=== PATIENT | female | born 1950 | race African-American/Black ===

== ENCOUNTER 2018-08-04 10:25 | Inpatient (IN) | payer BC, OTHER ==
[2018-08-04] MEDS ORDERED: SODIUM CHLORIDE 0.9% 1000 ML INFUS.BAG IV ONE (11:09)
[2018-08-04] MEDS ORDERED: FAMOTIDINE 20 MG/50 ML IVPB 20 MG/50 ML MG IVPB ONE ×2 (11:09→11:52)
[2018-08-04] MEDS ORDERED: ONDANSETRON 4 MG/2 ML VIAL IVPUSH ONE (11:09)
[2018-08-04] MEDS ORDERED: ONDANSETRON 4 MG/2 ML VIAL ONE (11:29)
[2018-08-04 11:55] LABS: BASO % 0.4 % (0-2.0); HEMATOCRIT 39.5 % (32.4-45.2); HEMOGLOBIN 12.9 GM/dL (10.7-15.3); LYMPH % 6.7 % (8-40); MCH 26.9 pg (25.7-33.7); MCHC 32.6 g/dl (32.0-36.0); MEAN CELL VOLUME 82.4 fl (80-96); MONO % 7.8 % (3.8-10.2); NEUT % 85.1 % (42.8-82.8); RBC 4.79 M/mm3 (3.60-5.2); RDW 14.2 % (11.6-15.6); WHITE BLOOD COUNT 9.7 K/mm3 (4.0-10.0)
--- NOTE | 2018-08-04 11:55 | PDOC ---
Documentation entered by Patricio Gomez SCRIBE, acting as scribe for Taty Uribe DO. Taty Uribe DO: This documentation has been prepared by the Patricia carlson Elijah, SCRIBE, under my direction and personally reviewed by me in its entirety. I confirm that the documentation accurately reflects all work, treatment, procedures, and medical decision making performed by me. History of Present Illness - General Chief Complaint: Diarrhea Stated Complaint: WEAK Time Seen by Provider: 08/04/18 10:48 History Source: Patient Exam Limitations: No Limitations - History of Present Illness Initial Comments: 08/04/18 11:32 The patient is a 68 year old female with no reported past medical history who presents to the ED with lightheadedness and diarrhea beginning two days prior. The patient reports eating a fruit cup that she reports was bitter. The patient then went to work and upon her return home, her symptoms began to onset. The patient reports that the diarrhea has come out in squirts and had 1 BM today and this morning. The patient described the lightheadedness as making her feel as if she was going to pass out but has since improved. The patient reported sleeping mostly over the last two days, that sips of gatorade has helped alleviate the pain and she tried to make herself vomit but nothing came out. Denies: Blood in Stool, Vomiting, Abdominal Pain, Dysuria, CP, SOB, Cough, Recent travel/ Antibiotic Use. Allergies: NKA Past History - Past Medical History Allergies/Adverse Reactions: Allergies Allergy/AdvReac Type Severity Reaction Status Date / Time No Known Allergies Allergy Verified 08/04/18 10:30 Asthma: Yes COPD: No - Suicide/Smoking/Psychosocial Hx Smoking History: Never smoked Review of Systems - Review of Systems Comments:: 08/04/18 11:32 GENERAL/CONSTITUTIONAL: +Lightheadedness No fever or chills. HEAD, EYES, EARS, NOSE AND THROAT: No change in vision. No ear pain or discharge. No sore throat. CARDIOVASCULAR: No chest pain or shortness of breath. RESPIRATORY: No cough, wheezing, or hemoptysis. GASTROINTESTINAL: +Diarrhea. No nausea, vomiting, or constipation. GENITOURINARY: No dysuria, frequency, or change in urination. MUSCULOSKELETAL: No joint or muscle swelling or pain. No neck or back pain. SKIN: No rash NEUROLOGIC: No headache, vertigo, loss of consciousness, or change in strength/ sensation. ENDOCRINE: No increased thirst. No abnormal weight change. HEMATOLOGIC/LYMPHATIC: No anemia, easy bleeding, or history of blood clots. ALLERGIC/IMMUNOLOGIC: No hives or skin allergy. *Physical Exam - Vital Signs Last Vital Signs Temp Pulse Resp BP Pulse Ox 98.7 F 95 H 18 116/75 99 08/04/18 10:28 08/04/18 10:08/04/18 10:08/04/18 10:08/04/18 10:28 - Physical Exam Comments: 08/04/18 11:33 GENERAL: Awake, alert, and fully oriented, in no acute distress HEAD: No signs of trauma EYES: PERRLA, EOMI, sclera anicteric, conjunctiva clear ENT: +Dry Mucosa. Auricles normal inspection, hearing grossly normal, nares patent, oropharynx clear without exudates. NECK: Normal ROM, supple, no lymphadenopathy, JVD, or masses LUNGS: Breath sounds equal, clear to auscultation bilaterally. No wheezes, and no crackles HEART: Regular rate and rhythm, normal S1 and S2, no murmurs, rubs or gallops ABDOMEN: Soft, nontender, normoactive bowel sounds. No guarding, no rebound. No masses EXTREMITIES: Normal range of motion, no edema. No clubbing or cyanosis. No cords, erythema, or tenderness NEUROLOGICAL: Cranial nerves II through XII grossly intact. Normal speech, normal gait SKIN: Warm, Dry, normal turgor, no rashes or lesions noted. Heart Score/ECG Review - ECG Intrepretation Comment:: 08/04/18 11:54 sinus at 87, nl axis, nl interval, no acute st/t wave findings, q waves septally which are age indeterminate 08/04/18 16:23 ED Treatment Course - LABORATORY CBC & Chemistry Diagram: 08/04/18 11:40 08/04/18 11:27 Medical Decision Making - Medical Decision Making 08/04/18 11:09 a/p: 68yo female with no pmhx with 2 days of diarrhea -felt lightheded on , started to have nonbloody diarrhea -felt nauseated -no vomiting -tolerated po yesterday -still with diarrhea this am- no blood in stool -no recent travel, abx, sick contacts -drank gatorade yesterday -will send labs, ekg, ivf hydration, zofran/pepcid -no abd ttp, states urinating freq, will send ua, but denies dysuria -will monitor and reassess -pt with dry mm, but nontoxic in appearance 08/04/18 13:01 mild trop spill will repeat at 3hr clover will give asa pt denies cp 08/04/18 13:28 pt denies needing any cp over the last week states feeling better now will continue to monitor and repeat trop 08/04/18 16:24 repeat trop still elevated pt again denies cp, but c/o nausea case discussed with Dr. Parham- accepts pt to service consult palced to dr. allen from cards *DC/Admit/Observation/Transfer Diagnosis at time of Disposition: Weak, Elevated troponin, UTI (urinary tract infection), Diarrhea - Discharge Dispostion Condition at time of disposition: Fair Decision to Admit order: Yes - Referrals - Patient Instructions - Post Discharge Activity - Attestations Physician Attestion: 08/04/18 16:27 I, Dr. Taty Uribe, DO, attest that this document has been prepared under my direction and personally reviewed by me in its entirety. I further attest, that it accurately reflects all work, treatment, procedures and medical decision -making performed by me.
[2018-08-04 12:04] LABS: PLATELET COUNT 148 K/MM3 (134-434)
[2018-08-04 12:23] LABS: ALBUMIN 3.2 g/dl (3.4-5.0); BILIRUBIN,TOTAL 0.6 mg/dL (0.2-1); BLOOD UREA NITROGEN 12.2 mg/dL (7-18); CALCIUM 8.9 mg/dL (8.5-10.1); CREATININE 1.1 mg/dL (0.55-1.3); MAGNESIUM 2.3 mg/dL (1.8-2.4); POTASSIUM 4.1 mmol/L (3.5-5.1); TOT PROT 6.8 g/dl (6.4-8.2)
[2018-08-04 12:36] LABS: EPI CELLS 1.4 /HPF (0-5/HPF); HYALINE CASTS 5 /lpf (0-8); URINE APPEARANCE CLOUDY; URINE BACTERIA 17.6 /hpf (NEGATIVE); URINE BILIRUBIN NEGATIVE (NEGATIVE); URINE COLOR YELLOW; URINE GLUCOSE (UA) NEGATIVE (NEGATIVE); URINE KETONE NEGATIVE (NEGATIVE); URINE LEUK ESTERASE 3+ (NEGATIVE); URINE NITRITE NEGATIVE (NEGATIVE); URINE PROTEIN 1+ (NEGATIVE); URINE RBC 18 /hpf (0-4); URINE WBC 376 /hpf (0-5)
[2018-08-04] MEDS ORDERED: CEFTRIAXONE 1 GM in DEXTROSE 5%-WATER - 100 ML IVPB ONE (12:58)
[2018-08-04] MEDS ORDERED: ASPIRIN 81 MG CHEWABLE TABLETS PO ONE (13:01)
[2018-08-04] MEDS ORDERED: ASPIRIN 81 MG CHEWABLE TABLETS ONE (14:19)
[2018-08-04] MEDS ORDERED: CEFTRIAXONE 1 GM/50 ML BAG ONE (14:19)
--- NOTE | 2018-08-04 16:36 | HP ---
CHIEF COMPLAINT: Diarrhea, Lethargy PCP: None HISTORY OF PRESENT ILLNESS: Pt is a 68 y/o F with no past medical history who presented to [facility] due to diarrhea and nausea. Pt endorses that this past , she began to feel rather weak and slept through most of the day. 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 Pt also states that she has had to urinate much more frequently during this time period. Diarrhea is described as coming out in " Squirts" and is non-bloody and not dark in color. Denies any inciting events. States she did consume a fruit cup before her symptoms began. Denies chest pain, shortness of breath, recent illness, or sick contacts. Denies ever experiencing these symptoms in the past. States she has not been followed by a primary care physician for years. PMH None Social Hx- Denies smoking or alcohol use. Denies illicit drug use. FH- MOM- DM, HTN. Father-Colon Cancer SurgHx- Dilation and Curettage ER course was notable for: (1) Troponin 0.09 (2) Leuk Est 3+ (3) Urine Blood- 3+ Allergies No Known Allergies Allergy (Verified 08/04/18 10:30) HOME MEDICATIONS: REVIEW OF SYSTEMS CONSTITUTIONAL: Absent: fever, chills, diaphoresis, generalized weakness, malaise, loss of appetite, weight change HEENT: Absent: rhinorrhea, nasal congestion, throat pain, throat swelling, difficulty swallowing, mouth swelling, ear pain, eye pain, visual changes CARDIOVASCULAR: Absent: chest pain, syncope, palpitations, irregular heart rate, lightheadedness , peripheral edema RESPIRATORY: Absent: cough, shortness of breath, dyspnea with exertion, orthopnea, wheezing, stridor, hemoptysis GASTROINTESTINAL: PRESENT nausea, diarrhea GENITOURINARY: Absent: dysuria, frequency, urgency, hesitancy, hematuria, flank pain, genital pain MUSCULOSKELETAL: Absent: myalgia, arthralgia, joint swelling, back pain, neck pain SKIN: Absent: rash, itching, pallor HEMATOLOGIC/IMMUNOLOGIC: Absent: easy bleeding, easy bruising, lymphadenopathy, frequent infections ENDOCRINE: Absent: unexplained weight gain, unexplained weight loss, heat intolerance, cold intolerance NEUROLOGIC: Absent: headache, focal weakness or paresthesias, dizziness, unsteady gait, seizure, mental status changes, bladder or bowel incontinence PSYCHIATRIC: Absent: anxiety, depression, suicidal or homicidal ideation, hallucinations. PHYSICAL EXAMINATION Vital Signs - 24 hr 08/04/18 08/04/18 08/04/18 10:28 12:03 14:48 Temperature 98.7 F Pulse Rate 95 H Pulse Rate [ 94 H Left Radial] Respiratory 18 18 Rate Blood Pressure 116/75 Blood Pressure 138/77 [Right Arm] O2 Sat by Pulse 99 99 98 Oximetry (%) GENERAL: NAD HEAD: Atraumatic/Normocephalic EYES: EOMI Sclera Clear EARS, NOSE, THROAT: MMM NECK: Normal range of motion, supple. LUNGS: CTAB HEART: RRR S1S2. ABDOMEN: Soft NDNT. No suprapubic tenderness MUSCULOSKELETAL: FROM throughout LOWER EXTREMITIES: No CCE NEUROLOGICAL: Cranial nerves II-XII intact. Normal speech. Normal gait. PSYCHIATRIC: Cooperative. Good eye contact. Appropriate mood and affect. SKIN: Warm, dry, normal turgor, no rashes or lesions noted, normal capillary refill. Laboratory Results - last 24 hr 08/04/18 08/04/18 08/04/18 11:27 11:40 11:50 WBC 9.7 RBC 4.79 Hgb 12.9 Hct 39.5 MCV 82.4 MCH 26.9 MCHC 32.6 RDW 14.2 Plt Count 148 MPV 9.0 Absolute Neuts (auto) 8.2 H Neutrophils % 85.1 H Lymphocytes % 6.7 L Monocytes % 7.8 Eosinophils % 0.0 Basophils % 0.4 Nucleated RBC % 0 Sodium 133 L Potassium 4.1 Chloride 97 L Carbon Dioxide 32 Anion Gap 4 L BUN 12.2 Creatinine 1.1 Est GFR (CKD-EPI)AfAm 58.91 Est GFR (CKD-EPI)NonAf 50.83 Random Glucose 155 H Calcium 8.9 Magnesium 2.3 Total Bilirubin 0.6 AST 53 H ALT 35 Alkaline Phosphatase 71 Creatine Kinase 341 H Creatine Kinase Index 0.4 CK-MB (CK-2) 1.7 Troponin I 0.09 H Total Protein 6.8 Albumin 3.2 L Lipase 209 Urine Color Yellow Urine Appearance Cloudy Urine pH 6.0 Ur Specific [place] 1.018 Urine Protein 1+ H Urine Glucose (UA) Negative Urine Ketones Negative Urine Blood 3+ H Urine Nitrite Negative Urine Bilirubin Negative Urine Urobilinogen 1.0 Ur Leukocyte Esterase 3+ H Urine WBC (Auto) 376 Urine RBC (Auto) 18 Urine Casts (Auto) 5 U Epithel Cells (Auto) 1.4 Urine Bacteria (Auto) 17.6 08/04/18 14:17 WBC RBC Hgb Hct MCV MCH MCHC RDW Plt Count MPV Absolute Neuts (auto) Neutrophils % Lymphocytes % Monocytes % Eosinophils % Basophils % Nucleated RBC % Sodium Potassium Chloride Carbon Dioxide Anion Gap BUN Creatinine Est GFR (CKD-EPI)AfAm Est GFR (CKD-EPI)NonAf Random Glucose Calcium Magnesium Total Bilirubin AST ALT Alkaline Phosphatase Creatine Kinase 344 H Creatine Kinase Index 0.5 CK-MB (CK-2) 1.8 Troponin I 0.09 H Total Protein Albumin Lipase Urine Color Urine Appearance Urine pH Ur Specific [place] Urine Protein Urine Glucose (UA) Urine Ketones Urine Blood Urine Nitrite Urine Bilirubin Urine Urobilinogen Ur Leukocyte Esterase Urine WBC (Auto) Urine RBC (Auto) Urine Casts (Auto) U Epithel Cells (Auto) Urine Bacteria (Auto) ASSESSMENT/PLAN: Pt is a 68 y/o F with no past medical history who presented to [facility] due to diarrhea and nausea. #R/O ACS -Trop 0.09. Repeat 0.09. 3rd trop pending -Echocardiogram -Tele -Cardiology Consult -EKG--> NSR, R Atrial Enlargement. No previous EKG to compare. QTc 416. #UTI -Leuk Est 3+. Urine WBCs 376. -Ceftriaxone 1 gm -Urine Culture pending #Hematuria -Urine Blood 3+ Microscopic. H/H WNL. -+ RBCs. Repeat U.A. If still + once UTI resolved, consider Urology evaluation outpatient. -Consider Renal Sono # Diarrhea -Stool O &P #FEN No Fluids --Monitor Electrolytes -Regular Diet #DVT ppx: -HEPSQTID #Dispo: Tele Visit type - Emergency Visit Emergency Visit: Yes ED Registration Date: 08/04/18 Care time: The patient presented to the Emergency Department on the above date and was hospitalized for further evaluation of their emergent condition. - New Patient This patient is new to me today: Yes Date on this admission: 08/04/18 - Critical Care Critical Care patient: No
--- NOTE | 2018-08-04 17:50 | PN ---
Teaching Attending Note Name of Resident: Julian Gonzalez ATTENDING PHYSICIAN STATEMENT I saw and evaluated the patient. I reviewed the resident's note and discussed the case with the resident. I agree with the resident's findings and plan as documented. SUBJECTIVE: This is a 68 year old woman with no significant medical history who comes to the ED complaining of weakness, fatigue, and lightheadedness x 2 days. She reports having diarrhea for several days. She denies having fever, chest pain, SOB. She has had chills. OBJECTIVE: Vital Signs Period Temp Pulse Resp BP Sys/Simon Pulse Ox Last 24 Hr 98.7 F 94-95 18-18 116-138/75-77 98-99 HEART: S1S2, RRR LUNGS: Clear ABDOMEN: Soft, non-tender, non-distended, normal BS EXTREMITIES: No edema Laboratory Tests 08/04/18 08/04/18 08/04/18 11:27 11:40 11:50 WBC 9.7 RBC 4.79 Hgb 12.9 Hct 39.5 MCV 82.4 MCH 26.9 MCHC 32.6 RDW 14.2 Plt Count 148 MPV 9.0 Absolute Neuts (auto) 8.2 H Neutrophils % 85.1 H Lymphocytes % 6.7 L Monocytes % 7.8 Eosinophils % 0.0 Basophils % 0.4 Nucleated RBC % 0 Sodium 133 L Potassium 4.1 Chloride 97 L Carbon Dioxide 32 Anion Gap 4 L BUN 12.2 Creatinine 1.1 Est GFR (CKD-EPI)AfAm 58.91 Est GFR (CKD-EPI)NonAf 50.83 Random Glucose 155 H Calcium 8.9 Magnesium 2.3 Total Bilirubin 0.6 AST 53 H ALT 35 Alkaline Phosphatase 71 Creatine Kinase 341 H Creatine Kinase Index 0.4 CK-MB (CK-2) 1.7 Troponin I 0.09 H Total Protein 6.8 Albumin 3.2 L Lipase 209 Urine Color Yellow Urine Appearance Cloudy Urine pH 6.0 Ur Specific [place] 1.018 Urine Protein 1+ H Urine Glucose (UA) Negative Urine Ketones Negative Urine Blood 3+ H Urine Nitrite Negative Urine Bilirubin Negative Urine Urobilinogen 1.0 Ur Leukocyte Esterase 3+ H Urine WBC (Auto) 376 Urine RBC (Auto) 18 Urine Casts (Auto) 5 U Epithel Cells (Auto) 1.4 Urine Bacteria (Auto) 17.6 08/04/18 14:17 WBC RBC Hgb Hct MCV MCH MCHC RDW Plt Count MPV Absolute Neuts (auto) Neutrophils % Lymphocytes % Monocytes % Eosinophils % Basophils % Nucleated RBC % Sodium Potassium Chloride Carbon Dioxide Anion Gap BUN Creatinine Est GFR (CKD-EPI)AfAm Est GFR (CKD-EPI)NonAf Random Glucose Calcium Magnesium Total Bilirubin AST ALT Alkaline Phosphatase Creatine Kinase 344 H Creatine Kinase Index 0.5 CK-MB (CK-2) 1.8 Troponin I 0.09 H Total Protein Albumin Lipase Urine Color Urine Appearance Urine pH Ur Specific [place] Urine Protein Urine Glucose (UA) Urine Ketones Urine Blood Urine Nitrite Urine Bilirubin Urine Urobilinogen Ur Leukocyte Esterase Urine WBC (Auto) Urine RBC (Auto) Urine Casts (Auto) U Epithel Cells (Auto) Urine Bacteria (Auto) ASSESSMENT AND PLAN: This is a 68 year old woman with no significant medical history who presented to the ED with weakness, fatigue, lightheadedness, and diarrhea. 1. Elevated CK, troponin - Patient denies chest pain - No ischemic EKG changes - Monitor on telemetry - Serial troponins - Echocardiogram 2. UTI - Ceftriaxone given in ED - will continue - Follow-up urine culture 3. Diarrhea - Check stool culture, O&P, WBC
[2018-08-04] MEDS: ACETAMINOPHEN 1000 MG/100 ML VIAL (NON FORMULARY) IVPB PRN (21:02)
[2018-08-04] MEDS: HEPARIN NA (PORCINE) 5,000 UNITS/ML 1ML VIAL SQ SCH (21:43)
[2018-08-05] MEDS: HEPARIN NA (PORCINE) 5,000 UNITS/ML 1ML VIAL SQ SCH ×3 (06:34→21:59)
[2018-08-05 06:43] LABS: BASO % 0.5 % (0-2.0); EOS % 0.1 % (0-4.5); HEMATOCRIT 36.8 % (32.4-45.2); HEMOGLOBIN 12.1 GM/dL (10.7-15.3); LYMPH % 9.9 % (8-40); MEAN CELL VOLUME 81.7 fl (80-96); MEAN PLT VOLUME 8.8 fl (7.5-11.1); MONO % 10.6 % (3.8-10.2); NEUT % 78.9 % (42.8-82.8); PLATELET COUNT 134 K/MM3 (134-434); WHITE BLOOD COUNT 6.5 K/mm3 (4.0-10.0)
[2018-08-05 07:02] LABS: PHOSPHOROUS 2.1 mg/dL (2.5-4.9)
[2018-08-05 07:12] LABS: INR 1.16 (0.83-1.09); PROTHROMBIN TIME (PATIENT) 13.7 SEC (9.7-13.0)
[2018-08-05 07:15] LABS: ACTIVATED PTT 35.8 SECONDS (25.2-36.5)
[2018-08-05] MEDS: ACETAMINOPHEN 1000 MG/100 ML VIAL (NON FORMULARY) IVPB PRN ×2 (10:36→21:59)
--- NOTE | 2018-08-05 10:37 | PN ---
Physical Exam: SUBJECTIVE: Patient seen and examined. She has no complaints. She has temp 103.2 this morning. OBJECTIVE: Vital Signs Period Temp Pulse Resp BP Sys/Simon Pulse Ox Last 24 Hr 98.0 F-103.2 F 75-94 16-18 126-147/67-79 96-99 GENERAL: The patient is awake, alert, and fully oriented, in no acute distress. LUNGS: Breath sounds equal, clear to auscultation bilaterally, no wheezes, no crackles, no accessory muscle use. HEART: Regular rate and rhythm, S1, S2, (+) 2/6 systolic murmur. ABDOMEN: Soft, nontender, nondistended, normoactive bowel sounds, no guarding, no rebound, no hepatosplenomegaly, no masses. EXTREMITIES: 2+ pulses, warm, well-perfused, no edema. Laboratory Results - last 24 hr 08/04/18 08/04/18 08/04/18 11:27 11:40 11:50 WBC 9.7 RBC 4.79 Hgb 12.9 Hct 39.5 MCV 82.4 MCH 26.9 MCHC 32.6 RDW 14.2 Plt Count 148 MPV 9.0 Absolute Neuts (auto) 8.2 H Neutrophils % 85.1 H Lymphocytes % 6.7 L Monocytes % 7.8 Eosinophils % 0.0 Basophils % 0.4 Nucleated RBC % 0 PT with INR INR PTT (Actin FS) Sodium 133 L Potassium 4.1 Chloride 97 L Carbon Dioxide 32 Anion Gap 4 L BUN 12.2 Creatinine 1.1 Est GFR (CKD-EPI)AfAm 58.91 Est GFR (CKD-EPI)NonAf 50.83 Random Glucose 155 H Lactic Acid Calcium 8.9 Phosphorus Magnesium 2.3 Total Bilirubin 0.6 AST 53 H ALT 35 Alkaline Phosphatase 71 Creatine Kinase 341 H Creatine Kinase Index 0.4 CK-MB (CK-2) 1.7 Troponin I 0.09 H Total Protein 6.8 Albumin 3.2 L Lipase 209 Urine Color Yellow Urine Appearance Cloudy Urine pH 6.0 Ur Specific [place] 1.018 Urine Protein 1+ H Urine Glucose (UA) Negative Urine Ketones Negative Urine Blood 3+ H Urine Nitrite Negative Urine Bilirubin Negative Urine Urobilinogen 1.0 Ur Leukocyte Esterase 3+ H Urine WBC (Auto) 376 Urine RBC (Auto) 18 Urine Casts (Auto) 5 U Epithel Cells (Auto) 1.4 Urine Bacteria (Auto) 17.6 08/04/18 08/04/18 08/05/18 14:17 19:43 06:11 WBC 6.5 RBC 4.50 Hgb 12.1 Hct 36.8 MCV 81.7 MCH 27.0 MCHC 33.0 RDW 14.0 Plt Count 134 MPV 8.8 Absolute Neuts (auto) 5.1 Neutrophils % 78.9 Lymphocytes % 9.9 D Monocytes % 10.6 H Eosinophils % 0.1 D Basophils % 0.5 Nucleated RBC % 0 PT with INR INR PTT (Actin FS) Sodium Potassium Chloride Carbon Dioxide Anion Gap BUN Creatinine Est GFR (CKD-EPI)AfAm Est GFR (CKD-EPI)NonAf Random Glucose Lactic Acid Calcium Phosphorus Magnesium Total Bilirubin AST ALT Alkaline Phosphatase Creatine Kinase 344 H Creatine Kinase Index 0.5 CK-MB (CK-2) 1.8 Troponin I 0.09 H 0.10 H Total Protein Albumin Lipase Urine Color Urine Appearance Urine pH Ur Specific [place] Urine Protein Urine Glucose (UA) Urine Ketones Urine Blood Urine Nitrite Urine Bilirubin Urine Urobilinogen Ur Leukocyte Esterase Urine WBC (Auto) Urine RBC (Auto) Urine Casts (Auto) U Epithel Cells (Auto) Urine Bacteria (Auto) 08/05/18 08/05/18 08/05/18 06:11 06:11 06:11 WBC RBC Hgb Hct MCV MCH MCHC RDW Plt Count MPV Absolute Neuts (auto) Neutrophils % Lymphocytes % Monocytes % Eosinophils % Basophils % Nucleated RBC % PT with INR 13.70 H INR 1.16 H PTT (Actin FS) 35.8 Sodium Potassium Chloride Carbon Dioxide Anion Gap BUN Creatinine Est GFR (CKD-EPI)AfAm Est GFR (CKD-EPI)NonAf Random Glucose Lactic Acid 0.8 Calcium Phosphorus 2.1 L Magnesium 2.0 Total Bilirubin AST ALT Alkaline Phosphatase Creatine Kinase Creatine Kinase Index CK-MB (CK-2) Troponin I 0.09 H Total Protein Albumin Lipase Urine Color Urine Appearance Urine pH Ur Specific [place] Urine Protein Urine Glucose (UA) Urine Ketones Urine Blood Urine Nitrite Urine Bilirubin Urine Urobilinogen Ur Leukocyte Esterase Urine WBC (Auto) Urine RBC (Auto) Urine Casts (Auto) U Epithel Cells (Auto) Urine Bacteria (Auto) Active Medications Generic Name Dose Route Start Last Admin Trade Name Freq PRN Reason Stop Dose Admin Acetaminophen 1,000 mg 08/04/18 20:41 08/05/18 10:36 Ofirmev Injection - IVPB 1,000 mg Q6H PRN Administration PAIN OR FEVER Heparin Sodium (Porcine) 5,000 unit 08/04/18 22:00 08/05/18 06:34 Heparin - SQ 5,000 unit TID ELIDA Administration Ceftriaxone Sodium 1 gm/ 50 mls @ 100 mls/hr 08/05/18 13:00 Dextrose IVPB DAILY@1300 [facility] Protocol ASSESSMENT/PLAN: This is a 68 year old woman with no significant medical history who presented to the ED with weakness, fatigue, lightheadedness, and diarrhea. 1. Elevated CK, troponin - Patient denies chest pain - No ischemic EKG changes - Monitor on telemetry - Troponins unchanged 0.09-0.10 - Echocardiogram ordered - Cardiology evaluation 2. UTI - Febrile today - Urine culture growing normal isaac - Continue ceftriaxone - If fever persists, will repeat CXR, blood/urine cultures 3. Diarrhea - Has not had diarrhea since admitted - Check stool culture, O&P, WBC 4. Hypophosphatemia - Start NeutraPhos Visit type - Emergency Visit Emergency Visit: Yes ED Registration Date: 08/04/18 Care time: The patient presented to the Emergency Department on the above date and was hospitalized for further evaluation of their emergent condition. - New Patient This patient is new to me today: No - Critical Care Critical Care patient: No - Discharge Referral Referred to [facility] No
[2018-08-05] MEDS ORDERED: cefTRIAXone SODIUM 1 GM VIAL ONE (13:12)
[2018-08-05] MEDS ORDERED: DEXTROSE 5%-WATER - 50 ML IVPB ONE (13:12)
[2018-08-05] MEDS: CEFTRIAXONE 1 GM in DEXTROSE 5%-WATER - 50 ML IVPB SCH (13:29)
[2018-08-05] MEDS: NAPH,MB-DB/K PH,MBDB POWDER PACKET PO SCH (21:59)
--- NOTE | 2018-08-06 00:26 | EKG ---
Test Reason : Blood Pressure : / mmHG Vent. Rate : 087 BPM Atrial Rate : 087 BPM P-R Int : 160 ms QRS Dur : 074 ms QT Int : 346 ms P-R-T Axes : 073 019 054 degrees QTc Int : 416 ms NORMAL SINUS RHYTHM RIGHT ATRIAL ENLARGEMENT SEPTAL INFARCT , AGE UNDETERMINED ABNORMAL ECG NO PREVIOUS ECGS AVAILABLE Confirmed by MD Panchal Edward ([id number]) on 08/06/2018 12:26:19 AM Referred By: Confirmed By:Bruno Panchal MD
[2018-08-06] MEDS: ACETAMINOPHEN 1000 MG/100 ML VIAL (NON FORMULARY) IVPB PRN (06:36)
[2018-08-06] MEDS: HEPARIN NA (PORCINE) 5,000 UNITS/ML 1ML VIAL SQ SCH ×3 (06:45→22:46)
[2018-08-06 08:02] LABS: BASO % 0.7 % (0-2.0); EOS % 0.2 % (0-4.5); HEMOGLOBIN 12.1 GM/dL (10.7-15.3); LYMPH % 14.6 % (8-40); MCHC 32.8 g/dl (32.0-36.0); MEAN CELL VOLUME 82.1 fl (80-96); MEAN PLT VOLUME 9.1 fl (7.5-11.1); MONO % 12.4 % (3.8-10.2); NEUT % 72.1 % (42.8-82.8); PLATELET COUNT 132 K/MM3 (134-434); RDW 13.8 % (11.6-15.6); WHITE BLOOD COUNT 5.4 K/mm3 (4.0-10.0)
[2018-08-06] MEDS ORDERED: ACETAMINOPHEN 1000 MG/100 ML VIAL (NON FORMULARY) IVPB ONE ×2 (08:15→17:26)
[2018-08-06 08:17] LABS: BLOOD UREA NITROGEN 8.2 mg/dL (7-18); CALCIUM 8.2 mg/dL (8.5-10.1); CREATININE 0.9 mg/dL (0.55-1.3); MAGNESIUM 2.2 mg/dL (1.8-2.4); PHOSPHOROUS 2.1 mg/dL (2.5-4.9); POTASSIUM 3.6 mmol/L (3.5-5.1)
[2018-08-06] MEDS: NAPH,MB-DB/K PH,MBDB POWDER PACKET PO SCH ×2 (10:03→22:46)
--- NOTE | 2018-08-06 12:14 | CON.CARD ---
Consult Consult Specialty:: Cardiology Referred by:: Hospitalist Medicine Reason for Consultation:: Demand ischemia - History of Present Illness Chief Complaint: Fever History of Present Illness: This is a 68 year old woman with no significant medical history who comes to the ED complaining of weakness, fatigue, nausea with dry heaves and lightheadedness x 2 days, diaphoresis, chills, subjective fevers up to 103.2. She reports having diarrhea and urinary frequency for several days. She denies having chest or abd pain, SOB, true syncope, palpitations, orthopnea, PND or LE edema. She has not been followed by a primary care physician for years. PMH None Social Hx- Denies smoking or alcohol use. Denies illicit drug use. FH- MOM- DM, HTN. Father-Colon Cancer SurgHx- Dilation and Curettage ER course was notable for: (1) Troponin 0.09 (2) Leuk Est 3+ (3) Urine Blood- 3+ - History Source History Provided By: Patient Limitations to Obtaining History: No Limitations - Smoking History Smoking history: Never smoked Home Medications - Allergies Allergies/Adverse Reactions: Allergies Allergy/AdvReac Type Severity Reaction Status Date / Time No Known Allergies Allergy Verified 08/04/18 10:30 Review of Systems - Review of Systems Constitutional: reports: Fever, Lethargy Gastrointestinal: reports: Diarrhea, Nausea Genitourinary: reports: Frequency Vital Signs: Vital Signs Temperature 101.3 F H 08/06/18 06:06 Pulse Rate 77 08/06/18 06:06 Respiratory Rate 20 08/06/18 06:06 Blood Pressure 138/58 L 08/06/18 06:06 O2 Sat by Pulse Oximetry (%) 96 08/06/18 06:00 Constitutional: Yes: No Distress, Calm Neck: Yes: Supple Respiratory: Yes: Regular, CTA Bilaterally Gastrointestinal: Yes: Normal Bowel Sounds, Soft Cardiovascular: Yes: Regular Rate and Rhythm JVD: No Carotid Bruit: No Heart Sounds: Yes: S1, S2 Edema: No - Other Data Labs, Other Data: CBC, BMP 08/06/18 06:36 08/06/18 06:36 INR, PTT INR 1.16 (0.83-1.09) H 08/05/18 06:11 NSR @ 87 Imaging - Results Chest X-ray: Report Reviewed (NAD) Problem List - Problems (1) Demand ischemia Code(s): I24.8 - OTHER FORMS OF ACUTE ISCHEMIC HEART DISEASE (2) Diarrhea Code(s): R19.7 - DIARRHEA, UNSPECIFIED Qualifiers: Diarrhea type: unspecified type Qualified Code(s): R19.7 - Diarrhea, unspecified (3) Elevated troponin Code(s): R74.8 - ABNORMAL LEVELS OF OTHER SERUM ENZYMES (4) UTI (urinary tract infection) Code(s): N39.0 - URINARY TRACT INFECTION, SITE NOT SPECIFIED Qualifiers: Urinary tract infection type: site unspecified Hematuria presence: without hematuria Qualified Code(s): N39.0 - Urinary tract infection, site not specified (5) Weak Code(s): R53.1 - WEAKNESS (6) Hyponatremia Code(s): E87.1 - HYPO-OSMOLALITY AND HYPONATREMIA Assessment/Plan 1. CAD, demand ischemia in context of 2. UTI, sepsis source 3. Diarrhea 4. Hyponatremia P:1. Trops plateaued, check echo to assess ventricular and valve fxn, start ASA 81 qd and Toprol XL 25 qd as hemodynamics tolerate 2. Empiric abx course per C&S, f/u stool studies, chest and abd/pelvic CT results, free H20 restrict, DVT prophylaxis 3. Thank you for consultative opportunity
[2018-08-06] MEDS ORDERED: DEXTROSE 5%-WATER - 50 ML IVPB ONE (12:45)
[2018-08-06] MEDS ORDERED: cefTRIAXone SODIUM 1 GM VIAL ONE (12:45)
[2018-08-06] MEDS: CEFTRIAXONE 1 GM in DEXTROSE 5%-WATER - 50 ML IVPB SCH (12:46)
[2018-08-06] MEDS: ASPIRIN 81 MG CHEWABLE TABLETS PO SCH (12:46)
[2018-08-06] MEDS: metoPROLOL SUCCINATE 25 MG TAB.SR.24H (FP) PO SCH (12:46)
--- NOTE | 2018-08-06 15:11 | ECHO ---
Name: SANTIAGO PINTO Exam:Adult Echocardiogram Study Date: 08/06/2018 08:20 AM Age: 68 yrs Reason For Study: troponin Height: 67 in Weight: 157 lb BSA: 1.8 m2 MMode/2D Measurements & Calculations IVSd: 1.0 cm ACS: 1.8 cm LVIDd: 5.1 cm LVIDs: 2.8 cm LVPWd: 0.73 cm IVSs: 1.7 cm LVPWs: 1.3 cm EDV(Teich): 124.5 ml ESV(Teich): 28.6 ml Doppler Measurements & Calculations MV E max jaleel: 68.1 cm/sec Ao V2 max: 161.6 cm/sec MV A max jaleel: 73.8 cm/sec Ao max P.4 mmHg MV E/A: 0.92 Ao V2 mean: 108.9 cm/sec Ao mean P.4 mmHg Ao V2 VTI: 29.9 cm TR max jaleel: 219.0 cm/sec PI end-d jaleel: 61.1 cm/sec TR max P.3 mmHg Med Peak E' Jaleel: 6.3 cm/sec Med E/e': 10.9 Lat Peak E' Jaleel: 8.8 cm/sec Lat E/e': 7.8 Procedure A complete two-dimensional transthoracic echocardiogram was performed (2D, M-mode, Doppler and color flow Doppler). Left Ventricle The left ventricle is normal in size. Left ventricular systolic function is normal. Ejection Fraction = 65- 70%. Grade I diastolic dysfunction, (abnormal relaxation pattern). Ratio E/E'= 9. No regional wall mo tion abnormalities noted. Right Ventricle The right ventricle is normal size. The right ventricular systolic function is normal. Atria The left atrial size is normal. Right atrial size is normal. Mitral Valve There is mild mitral annular calcification. There is mild mitral valve thickening. There is mild mitr al regurgitation. Tricuspid Valve The tricuspid valve is normal in structure and function. There is moderate tricuspid regurgitation. P ulmonary artery systolic pressure is at least 26 mmHg if RA pressure is assumed 3 mmHg. Aortic Valve There is mild aortic sclerosis.;. No aortic regurgitation is present. Pulmonic Valve The pulmonic valve is not well visualized. Mild pulmonic valvular regurgitation. Great Vessels The aortic root is normal size. Pericardium/Pleura There is no pericardial effusion. Interpretation Summary The left ventricle is normal in size. Left ventricular systolic function is normal. No regional wall motion abnormalities noted. Ejection Fraction = 65-70%. Grade I diastolic dysfunction, (abnormal relaxation pattern). Ratio E/E'= 9 The right ventricular systolic function is normal. The left atrial size is normal. Right atrial size is normal. There is mild mitral annular calcification. There is mild mitral valve thickening. There is mild mitral regurgitation. There is moderate tricuspid regurgitation. Pulmonary artery systolic pressure is at least 26 mmHg if RA pressure is assumed 3 mmHg There is mild aortic sclerosis. Mild pulmonic valvular regurgitation. There is no pericardial effusion. Previous study is not available for comparison Liam Blackmon MD 08/06/2018 03:10 PM
--- NOTE | 2018-08-06 16:54 | PN ---
Teaching Attending Note Name of Resident: Amanda Gilbert ATTENDING PHYSICIAN STATEMENT I saw and evaluated the patient. I reviewed the resident's note and discussed the case with the resident. I agree with the resident's findings and plan as documented. SUBJECTIVE: cont to have fever . No VILLALOBOS , no SOB, abd pain. no diarrhea OBJECTIVE: NAD CV: RRR, no MRG Lungs : CTAB Abd: soft, NT, ND , NL BS Ext : no edema or erythema ASSESSMENT AND PLAN: 68 y/o lady with no sig PMH who presented with fever and diarrhea 1- Fever: unclear source. U cx negative , but has significant pyuria. cxray with questinablel findings. had diarrhea - check CT of abd/p and chest - follow blood cx - cont empiric ctx - check legionella AG - no vegetations on Echo - will decide on next step after CT scan results - if no source is found, will consult ID 2- demand ischemia /elevated trop : - echo reviewed. - appreciate card input : ASa and BB 3- hypophosphatemia: replete 5- DVT PX : heparin sq
--- NOTE | 2018-08-06 18:45 | PN ---
Physical Exam: The patient is a 68 YO female, presented to the ER with c/o diarrhea and nausea. PMH is not significant. She was admitted for UTI and elevated Troponin levels. SUBJECTIVE: Patient seen and examined at bedside. She was seated in bed, was alert, and appeared to be well oriented in time and place. No acute complaints. Last bowel movement 2 days ago. OBJECTIVE: Vital Signs Period Temp Pulse Resp BP Sys/Simon Pulse Ox Last 24 Hr 98.0 F-103.2 F 73-85 20-20 110-146/52-91 96-97 GENERAL: The patient is awake, alert, and fully oriented, in no acute distress. HEAD: Normal with no signs of trauma. EYES: No ptosis. ABDOMEN: Soft, nontender, nondistended, no guarding, no rebound, no hepatosplenomegaly, no masses. EXTREMITIES: 2+ pulses, warm, well-perfused, no edema. PSYCH: Coooperative, maintained eye contact, normal mood, normal affect. SKIN: Warm, dry CBC, BMP 08/06/18 06:36 08/06/18 06:36 Laboratory Results - last 24 hr 08/06/18 08/06/18 06:36 06:36 WBC 5.4 RBC 4.50 Hgb 12.1 Hct 37.0 MCV 82.1 MCH 27.0 MCHC 32.8 RDW 13.8 Plt Count 132 L MPV 9.1 Absolute Neuts (auto) 3.9 Neutrophils % 72.1 Lymphocytes % 14.6 D Monocytes % 12.4 H Eosinophils % 0.2 D Basophils % 0.7 Nucleated RBC % 0 Sodium 133 L Potassium 3.6 Chloride 96 L Carbon Dioxide 31 Anion Gap 6 L BUN 8.2 Creatinine 0.9 Est GFR (CKD-EPI)AfAm 75.08 Est GFR (CKD-EPI)NonAf 64.78 Random Glucose 150 H Calcium 8.2 L Phosphorus 2.1 L Magnesium 2.2 Creatine Kinase 336 H Creatine Kinase Index 0.3 CK-MB (CK-2) 1.3 Active Medications Generic Name Dose Route Start Last Admin Trade Name Freq PRN Reason Stop Dose Admin Aspirin 81 mg 08/06/18 12:30 08/06/18 12:46 Asa - PO 81 mg DAILY ELIDA Administration Heparin Sodium (Porcine) 5,000 unit 08/04/18 22:00 08/06/18 14:44 Heparin - SQ 5,000 unit TID ELIDA Administration Ceftriaxone Sodium 1 gm/ 50 mls @ 100 mls/hr 08/05/18 13:00 08/06/18 12:46 Dextrose IVPB 100 mls/hr DAILY@1300 ELIDA Administration Protocol Metoprolol Succinate 25 mg 08/06/18 12:30 08/06/18 12:46 Toprol Xl - PO 25 mg DAILY ELIDA Administration Potassium Phos/Sodium Phos 1 packet 08/05/18 22:00 08/06/18 10:03 Phos-Nak Packet - PO 1 packet BID ELIDA Administration ASSESSMENT/PLAN: #ACS Troponin: 0.09. repeat 0.09, repeat 0.01 EKG: Noral Sinus Rhythm, R Atrial Enlargement. No previous EKGs available for comparison. Echo: showed E 65-70%, LVSF Normal, Grade 1 Diastolic Dysfunction Continue ASA and Metoprolol #Sepsis secondary to UTI Ceftriaxone course D/C after completion (3 days) Urine CX normal (08/04), repeat pending CT Chest & Abdomen/Pelvis w contrast pending 101.3F fever this morning, was administered 1g Tylenol IV 0636, repeat at 1750 #Diarrhea Resolved Stool culture pending #FEN No Fluids Monitor Electrolytes, Regular Diet #DVT Prophylaxis HEPSQTID #Disposition Tele Visit type - Emergency Visit Emergency Visit: Yes ED Registration Date: 08/04/18 Care time: The patient presented to the Emergency Department on the above date and was hospitalized for further evaluation of their emergent condition. - New Patient This patient is new to me today: Yes Date on this admission: 08/06/18 - Critical Care Critical Care patient: No - Discharge Referral Referred to [facility] Med P.C.: No
[2018-08-07] MEDS: HEPARIN NA (PORCINE) 5,000 UNITS/ML 1ML VIAL SQ SCH ×3 (06:41→22:04)
[2018-08-07] MEDS ORDERED: ACETAMINOPHEN 1000 MG/100 ML VIAL (NON FORMULARY) IVPB ONE (07:26)
[2018-08-07 08:22] LABS: HEMATOCRIT 38.4 % (32.4-45.2); HEMOGLOBIN 12.5 GM/dL (10.7-15.3); MCH 26.8 pg (25.7-33.7); MCHC 32.5 g/dl (32.0-36.0); MEAN CELL VOLUME 82.5 fl (80-96); MEAN PLT VOLUME 9.8 fl (7.5-11.1); PLATELET COUNT 142 K/MM3 (134-434); RBC 4.66 M/mm3 (3.60-5.2); RDW 13.9 % (11.6-15.6); WHITE BLOOD COUNT 6.8 K/mm3 (4.0-10.0)
[2018-08-07 08:49] LABS: ALBUMIN 2.8 g/dl (3.4-5.0); BILIRUBIN,TOTAL 0.4 mg/dL (0.2-1); BLOOD UREA NITROGEN 6.9 mg/dL (7-18); CALCIUM 8.4 mg/dL (8.5-10.1); POTASSIUM 3.8 mmol/L (3.5-5.1); TOT PROT 6.3 g/dl (6.4-8.2)
[2018-08-07] MEDS: ASPIRIN 81 MG CHEWABLE TABLETS PO SCH (09:38)
[2018-08-07] MEDS: NAPH,MB-DB/K PH,MBDB POWDER PACKET PO SCH ×2 (09:38→22:04)
[2018-08-07] MEDS: metoPROLOL SUCCINATE 25 MG TAB.SR.24H (FP) PO SCH (09:38)
--- NOTE | 2018-08-07 10:01 | PN ---
Progress Note, Physician Chief Complaint: Events noted Not in distress History of Present Illness: Patient was seen and examined. Awake and alert. Chart was reviewed. Denies chest pain, SOB or palpitations - Current Medication List Current Medications: Active Medications Aspirin (Asa -) 81 mg PO DAILY [facility] Last Admin: 08/07/18 09:38 Dose: 81 mg Heparin Sodium (Porcine) (Heparin -) 5,000 unit SQ TID [facility] Last Admin: 08/07/18 06:41 Dose: 5,000 unit Ceftriaxone Sodium 1 gm/ (Dextrose) 50 mls @ 100 mls/hr IVPB DAILY@1300 ELIDA; Protocol Last Admin: 08/06/18 12:46 Dose: 100 mls/hr Metoprolol Succinate (Toprol Xl -) 25 mg PO DAILY [facility] Last Admin: 08/07/18 09:38 Dose: 25 mg Potassium Phos/Sodium Phos (Phos-Nak Packet -) 1 packet PO BID [facility] Last Admin: 08/07/18 09:38 Dose: 1 packet - Objective Vital Signs: Vital Signs Temperature 102.4 F H 08/07/18 06:39 Pulse Rate 83 08/07/18 06:39 Respiratory Rate 20 08/07/18 06:39 Blood Pressure 132/64 08/07/18 06:39 O2 Sat by Pulse Oximetry (%) 96 08/06/18 21:00 Eyes: Yes: PERRL HENT: Yes: Atraumatic Neck: Yes: Supple Cardiovascular: Yes: Regular Rate and Rhythm Respiratory: Yes: CTA Bilaterally Gastrointestinal: Yes: Normal Bowel Sounds, Soft. No: Tenderness Edema: No Additional Findings/Remarks: - Review of Systems Constitutional: denies: Chills, Fever Cardiovascular: denies: Chest Pain, Palpitations, Shortness of Breath Respiratory: denies: Cough, Hemoptysis, Orthopnea, PND, SOB, SOB on Exertion Gastrointestinal: denies: Abdominal Pain, Constipation, Diarrhea, Melena, Nausea , Rectal Bleeding, Vomiting Musculoskeletal: denies: Back Pain, Joint Pain Neurological: denies Dizziness, Syncope. denies: Headache, Seizure Labs: CBC, BMP 08/07/18 07:36 08/07/18 07:36 Problem List - Problems (1) Demand ischemia Code(s): I24.8 - OTHER FORMS OF ACUTE ISCHEMIC HEART DISEASE (2) Elevated troponin Code(s): R74.8 - ABNORMAL LEVELS OF OTHER SERUM ENZYMES (3) Hyponatremia Code(s): E87.1 - HYPO-OSMOLALITY AND HYPONATREMIA (4) UTI (urinary tract infection) Code(s): N39.0 - URINARY TRACT INFECTION, SITE NOT SPECIFIED Qualifiers: Urinary tract infection type: site unspecified Hematuria presence: without hematuria Qualified Code(s): N39.0 - Urinary tract infection, site not specified Assessment/Plan 1. CAD, demand ischemia 2. UTI, sepsis source 3. Hyponatremia PLAN: 1. Trend troponin. Currently coming down 2. Continue ASA 81 mg QD and Toprol XL 25 mg QD as hemodynamics tolerate 3. Echocardiography was reviewed 4. Empiric antibiotic coverage 5. DVT prophylaxis Liam Blackmon MD
[2018-08-07 12:07] VITALS: BMI 25.3
[2018-08-07] MEDS ORDERED: cefTRIAXone SODIUM 1 GM VIAL ONE (14:02)
[2018-08-07] MEDS ORDERED: DEXTROSE 5%-WATER - 50 ML IVPB ONE ×2 (14:02→18:42)
[2018-08-07] MEDS: CEFTRIAXONE 1 GM in DEXTROSE 5%-WATER - 50 ML IVPB SCH (14:09)
[2018-08-07] MEDS ORDERED: AZITHROMYCIN IVPB 500 MG/250 ML BAG IVPB SCH (17:00)
--- NOTE | 2018-08-07 17:57 | PN ---
Teaching Attending Note Name of Resident: Amanda Gilbert ATTENDING PHYSICIAN STATEMENT I saw and evaluated the patient. I reviewed the resident's note and discussed the case with the resident. I agree with the resident's findings and plan as documented. SUBJECTIVE: cont to have fever . No VILLALOBOS . refused CT last night . had a formed BM OBJECTIVE: NAD CV: RRR, no MRG Lungs: CTAB Abd: soft, NT, ND, NL BS Ext : no edema or erythema ASSESSMENT AND PLAN: 68 y/o lady with no sig PMH who presented with fever and diarrhea 1- Fever: unclear source. U cx negative , but has significant pyuria. cxray with questionable findings. had diarrhea prior to admission - Unfortunately, she refused CT scan last night . will try today - in man time will add azithro and check legionella Ag given possible infiltrate - cont empiric ctx - no vegetations on Echo. blood cx neg to date - will consult ID. 2- Demand ischemia/elevated trop: - cont ASa and BB 3- hypophosphatemia: repeat tomorrow 5- DVT PX : heparin sq
[2018-08-07] MEDS ORDERED: PIPERACILLIN/TAZOB 3.375 GM 3.375 GM in DEXTROSE 5%-WATER - 50 ML IVPB SCH (18:15)
[2018-08-07] MEDS ORDERED: PIPERACILLIN/TAZOBACTAM 3.375 GM VIAL IVPB ONE (18:41)
[2018-08-07] MEDS: PIPERACILLIN/TAZOB 3.375 GM 3.375 GM in DEXTROSE 5%-WATER - 50 ML IVPB SCH (18:44)
--- NOTE | 2018-08-07 19:11 | PN ---
Physical Exam: Patient is a 68 yo Female with no significant PMH, presented to ED with diarrhea and nausea, admitted due to UTI and elevated Troponin levels. SUBJECTIVE: Patient seen and examined by the bedside. She was alert, well oriented in time and place, and cooperative. OBJECTIVE: Vital Signs Period Temp Pulse Resp BP Sys/Simon Pulse Ox Last 24 Hr 98.1 F-102.4 F 71-83 16-20 112-132/58-71 96-96 GENERAL: The patient is awake, alert, and fully oriented, in no acute distress. HEAD: Normal with no signs of trauma. EYES: No ptosis. NECK: Trachea midline, full range of motion, supple. LUNGS: Breath sounds equal, clear to auscultation bilaterally, no wheezes, no crackles, no accessory muscle use. HEART: Regular rate and rhythm, S1, S2 without murmur, rub or gallop. ABDOMEN: Soft, nontender, nondistended, normoactive bowel sounds, no guarding, no rebound, no hepatosplenomegaly. Potential hematoma detected in RLQ NEUROLOGICAL:Normal speech, gait not observed. PSYCH: Normal mood, normal affect. Laboratory Results - last 24 hr 08/07/18 08/07/18 07:36 07:36 WBC 6.8 RBC 4.66 Hgb 12.5 Hct 38.4 MCV 82.5 MCH 26.8 MCHC 32.5 RDW 13.9 Plt Count 142 MPV 9.8 Sodium 132 L Potassium 3.8 Chloride 95 L Carbon Dioxide 31 Anion Gap 6 L BUN 6.9 L Creatinine 1.0 Est GFR (CKD-EPI)AfAm 66.10 Est GFR (CKD-EPI)NonAf 57.03 Random Glucose 126 H Calcium 8.4 L Total Bilirubin 0.4 AST 74 H ALT 52 Alkaline Phosphatase 90 Total Protein 6.3 L Albumin 2.8 L Active Medications Generic Name Dose Route Start Last Admin Trade Name Freq PRN Reason Stop Dose Admin Acetaminophen 650 mg 08/07/18 16:51 Tylenol - PO Q6H PRN FEVER Aspirin 81 mg 08/06/18 12:30 08/07/18 09:38 Asa - PO 81 mg DAILY ELIDA Administration Heparin Sodium (Porcine) 5,000 unit 08/04/18 22:00 08/07/18 14:26 Heparin - SQ 5,000 unit TID ELIDA Administration Azithromycin 500 mg in 250 mls @ 250 mls/hr 08/07/18 17:00 08/07/18 18:45 Zithromax 500mg Ivpb (Pre-Docked) IVPB 250 mls/hr Q24H ELIDA Administration Piperacillin Sod/Tazobactam 50 mls @ 100 mls/hr 08/07/18 18:15 Sod 3.375 gm/ Dextrose IVPB Q8H-IV ELIDA Protocol Piperacillin Sod/Tazobactam 50 mls @ 100 mls/hr 08/07/18 18:30 08/07/18 18:44 Sod 3.375 gm/ Dextrose IVPB 08/08/18 10:29 100 mls/hr Q8H-IV ELIDA Administration Protocol Metoprolol Succinate 25 mg 08/06/18 12:30 08/07/18 09:38 Toprol Xl - PO 25 mg DAILY ELIDA Administration Potassium Phos/Sodium Phos 1 packet 08/05/18 22:00 08/07/18 09:38 Phos-Nak Packet - PO 1 packet BID ELIDA Administration CBC, BMP 08/07/18 07:36 08/07/18 07:36 ASSESSMENT/PLAN: #Fever -Fever spiked at 102.4 at 10AM and 101.6 at 3:41PM -Added Azythromycin 500mg Q24, Administered Tylenol IV, started on Tylenol PO PRN -Potential ID consult tomorrow pending CT result -CT scan refused by patient last night, due to go in today at 5PM -Reported one bowel movement at 7AM, brown and semi firm (like putty). #ACS: -Resolved, Troponin 0.01 -Continue Aspirin and BB #Hypophosphetemia: -Follow K #DVT -Heparin prophylaxis Visit type - Emergency Visit Emergency Visit: Yes ED Registration Date: 08/04/18 Care time: The patient presented to the Emergency Department on the above date and was hospitalized for further evaluation of their emergent condition. - New Patient This patient is new to me today: No - Critical Care Critical Care patient: No - Discharge Referral Referred to [facility] Med P.C.: No
[2018-08-07] MEDS: ACETAMINOPHEN 325 MG TABLET (FP) PO PRN (20:15)
[2018-08-08] MEDS ORDERED: ACETAMINOPHEN 1000 MG/100 ML VIAL (NON FORMULARY) IVPB PRN (02:05)
[2018-08-08] MEDS ORDERED: SODIUM CHLORIDE 500 ML IV STA (02:21)
[2018-08-08] MEDS: PIPERACILLIN/TAZOB 3.375 GM 3.375 GM in DEXTROSE 5%-WATER - 50 ML IVPB SCH ×4 (03:30→17:33)
[2018-08-08] MEDS ORDERED: DEXTROSE 5%-WATER - 50 ML IVPB ONE ×3 (03:48→16:31)
[2018-08-08] MEDS ORDERED: PIPERACILLIN/TAZOBACTAM 3.375 GM VIAL IVPB ONE ×3 (03:48→16:31)
[2018-08-08] MEDS: HEPARIN NA (PORCINE) 5,000 UNITS/ML 1ML VIAL SQ SCH ×3 (06:26→22:19)
[2018-08-08 07:57] LABS: BASO % 0.5 % (0-2.0); EOS % 0.2 % (0-4.5); HEMOGLOBIN 11.4 GM/dL (10.7-15.3); LYMPH % 17.6 % (8-40); MCH 26.7 pg (25.7-33.7); MCHC 32.7 g/dl (32.0-36.0); MEAN CELL VOLUME 81.6 fl (80-96); MEAN PLT VOLUME 9.3 fl (7.5-11.1); NEUT % 70.7 % (42.8-82.8); PLATELET COUNT 137 K/MM3 (134-434); RBC 4.29 M/mm3 (3.60-5.2); WHITE BLOOD COUNT 6.7 K/mm3 (4.0-10.0)
--- NOTE | 2018-08-08 08:08 | PN ---
Progress Note, Physician - Current Medication List Current Medications: Active Medications Acetaminophen (Tylenol -) 650 mg PO Q6H PRN PRN Reason: FEVER Last Admin: 08/07/18 20:15 Dose: 650 mg Acetaminophen (Ofirmev Injection -) 1,000 mg IVPB Q6H PRN PRN Reason: FEVER Aspirin (Asa -) 81 mg PO DAILY [facility] Last Admin: 08/07/18 09:38 Dose: 81 mg Heparin Sodium (Porcine) (Heparin -) 5,000 unit SQ TID [facility] Last Admin: 08/08/18 06:26 Dose: 5,000 unit Azithromycin (Zithromax 500mg Ivpb (Pre-Docked)) 500 mg in 250 mls @ 250 mls/ hr IVPB Q24H ON LICENSE OF [facility] Last Admin: 08/07/18 18:45 Dose: 250 mls/hr Piperacillin Sod/Tazobactam (Sod 3.375 gm/ Dextrose) 50 mls @ 100 mls/hr IVPB Q8H-IV ELIDA; Protocol Piperacillin Sod/Tazobactam (Sod 3.375 gm/ Dextrose) 50 mls @ 100 mls/hr IVPB Q8H-IV ELIDA; Protocol Stop: 08/08/18 10:29 Last Admin: 08/08/18 03:30 Dose: 100 mls/hr Metoprolol Succinate (Toprol Xl -) 25 mg PO DAILY [facility] Last Admin: 08/07/18 09:38 Dose: 25 mg Potassium Phos/Sodium Phos (Phos-Nak Packet -) 1 packet PO BID [facility] Last Admin: 08/07/18 22:04 Dose: 1 packet - Objective Vital Signs: Vital Signs Temperature 99.2 F 08/08/18 07:03 Pulse Rate 65 08/08/18 07:03 Respiratory Rate 20 08/08/18 07:03 Blood Pressure 106/51 L 08/08/18 07:03 O2 Sat by Pulse Oximetry (%) 96 08/07/18 21:00 Labs: INR, PTT INR 1.16 (0.83-1.09) H 08/05/18 06:11
--- NOTE | 2018-08-08 08:49 | PN ---
Teaching Attending Note Name of Resident: Ilya Salazar ATTENDING PHYSICIAN STATEMENT I saw and evaluated the patient. I reviewed the resident's note and discussed the case with the resident. I agree with the resident's findings and plan as documented. SUBJECTIVE: Patient is feeling better but fever overnight 102.7 , no chills, no abdominal pain. OBJECTIVE: Vital Signs Temperature 99.2 F 08/08/18 07:03 Pulse Rate 65 08/08/18 07:03 Respiratory Rate 20 08/08/18 07:03 Blood Pressure 106/51 L 08/08/18 07:03 O2 Sat by Pulse Oximetry (%) 96 08/07/18 21:00 GENERAL: The patient is awake, alert, and fully oriented, in no acute distress. HEAD: Normal with no signs of trauma. EYES: PERRL, extraocular movements intact, sclera anicteric, conjunctiva clear. ENT: Ears normal, oropharynx clear without exudates, moist mucous membranes. NECK: Trachea midline, full range of motion, supple. LUNGS: Breath sounds equal, clear to auscultation bilaterally, no wheezes, no crackles, no accessory muscle use. HEART: Regular rate and rhythm, S1, S2 without murmur, rub or gallop. ABDOMEN: Soft, NT,ND, normoactive bowel sounds, no guarding, no rebound, no hepatosplenomegaly, no masses. EXTREMITIES: 2+ pulses, warm, well-perfused, no edema. NEUROLOGICAL: Cranial nerves II through XII grossly intact. Normal speech, gait not observed. PSYCH: Normal mood, normal affect. SKIN: Warm, dry, normal turgor, no rashes or lesions noted CBCD WBC 6.8 K/mm3 (4.0-10.0) 08/07/18 07:36 RBC 4.66 M/mm3 (3.60-5.2) 08/07/18 07:36 Hgb 12.5 GM/dL (10.7-15.3) 08/07/18 07:36 Hct 38.4 % (32.4-45.2) 08/07/18 07:36 MCV 82.5 fl (80-96) 08/07/18 07:36 MCHC 32.5 g/dl (32.0-36.0) 08/07/18 07:36 RDW 13.9 % (11.6-15.6) 08/07/18 07:36 Plt Count 142 K/MM3 (134-434) 08/07/18 07:36 MPV 9.8 fl (7.5-11.1) 08/07/18 07:36 CMP Sodium 132 mmol/L (136-145) L 08/07/18 07:36 Potassium 3.8 mmol/L (3.5-5.1) 08/07/18 07:36 Chloride 95 mmol/L (98-107) L 08/07/18 07:36 Carbon Dioxide 31 mmol/L (21-32) 08/07/18 07:36 Anion Gap 6 MMOL/L (8-16) L 08/07/18 07:36 BUN 6.9 mg/dL (7-18) L 08/07/18 07:36 Creatinine 1.0 mg/dL (0.55-1.3) 08/07/18 07:36 Random Glucose 126 mg/dL (74-106) H 08/07/18 07:36 Calcium 8.4 mg/dL (8.5-10.1) L 08/07/18 07:36 Total Bilirubin 0.4 mg/dL (0.2-1) 08/07/18 07:36 AST 74 U/L (15-37) H 08/07/18 07:36 ALT 52 U/L (13-61) 08/07/18 07:36 Alkaline Phosphatase 90 U/L (45-117) 08/07/18 07:36 Total Protein 6.3 g/dl (6.4-8.2) L 08/07/18 07:36 Albumin 2.8 g/dl (3.4-5.0) L 08/07/18 07:36 CARDIAC ENZYMES Creatine Kinase 336 U/L (26-192) H 08/06/18 06:36 Troponin I 0.09 ng/ml (0.00-0.05) H 08/05/18 06:11 Current Medications Generic Name Dose Route Start Last Admin Trade Name Freq PRN Reason Stop Dose Admin Acetaminophen 650 mg 08/07/18 16:51 08/07/18 20:15 Tylenol - PO 650 mg Q6H PRN Administration FEVER Acetaminophen 1,000 mg 08/08/18 02:05 Ofirmev Injection - IVPB Q6H PRN FEVER Aspirin 81 mg 08/06/18 12:30 08/07/18 09:38 Asa - PO 81 mg DAILY ELIDA Administration Heparin Sodium (Porcine) 5,000 unit 08/04/18 22:00 08/08/18 06:26 Heparin - SQ 5,000 unit TID ELIDA Administration Azithromycin 500 mg in 250 mls @ 250 mls/hr 08/07/18 17:00 08/07/18 18:45 Zithromax 500mg Ivpb (Pre-Docked) IVPB 250 mls/hr Q24H ELIDA Administration Piperacillin Sod/Tazobactam 50 mls @ 100 mls/hr 08/07/18 18:15 Sod 3.375 gm/ Dextrose IVPB Q8H-IV ELIDA Protocol Piperacillin Sod/Tazobactam 50 mls @ 100 mls/hr 08/07/18 18:30 08/08/18 03:30 Sod 3.375 gm/ Dextrose IVPB 08/08/18 10:29 100 mls/hr Q8H-IV ELIDA Administration Protocol Metoprolol Succinate 25 mg 08/06/18 12:30 08/07/18 09:38 Toprol Xl - PO 25 mg DAILY ELIDA Administration Potassium Phos/Sodium Phos 1 packet 08/05/18 22:00 08/07/18 22:04 Phos-Nak Packet - PO 1 packet BID ELIDA Administration Microbiology 08/06/18 07:56 Blood - Peripheral Venous Blood Culture - Preliminary NO GROWTH OBTAINED AFTER 48 HOURS, INCUBATION TO CONTINUE FOR 3 DAYS. 08/06/18 08:24 Blood - Peripheral Venous Blood Culture - Preliminary NO GROWTH OBTAINED AFTER 48 HOURS, INCUBATION TO CONTINUE FOR 3 DAYS. 08/05/18 06:20 Blood - Peripheral Venous Blood Culture - Preliminary NO GROWTH OBTAINED AFTER 72 HOURS, INCUBATION TO CONTINUE FOR 2 DAYS. 08/05/18 06:11 Blood - Peripheral Venous Blood Culture - Preliminary NO GROWTH OBTAINED AFTER 72 HOURS, INCUBATION TO CONTINUE FOR 2 DAYS. 08/06/18 15:00 Urine - Urine Clean Catch Legionella Antigen - Final 08/06/18 15:00 Urine - Urine Clean Catch Streptococcus pneumoniae Antigen ( M - Final 08/06/18 15:00 Stool Salmonella/Shigella Culture - Preliminary NO ENTERIC PATHOGENS, 24 HOURS, ON PRIMARY PLATES 08/06/18 15:00 Stool Yersinia Culture - Preliminary NO ENTERIC PATHOGENS, 24 HOURS, ON PRIMARY PLATES 08/06/18 15:00 Stool Vibrio Culture - Final NO GROWTH OF VIBRIO SPECIES OBTAINED 08/06/18 15:00 Stool Escherichia coli 0157 Culture - Final NO GROWTH OF E COLI 0157 OBTAINED 08/06/18 15:00 Urine - Urine Clean Catch Urine Culture - Final NO GROWTH OBTAINED 08/04/18 14:17 Urine - Urine Clean Catch Urine Culture - Final Normal Urogenital Sandee ASSESSMENT AND PLAN: patient is a 68yo female with PMHx who presented with fever and diarrhea on CT of chest was found to have DULCE Pneumonia: # DULCE Pneumonia on IV zosyn and on IV zithromax as per ID will continue. no vegetations on Echo. blood cx neg to date # Demand ischemia/elevated trop: cont ASa and BB # hypophosphatemia:replete DVT PX : heparin sq
[2018-08-08 09:23] LABS: ALBUMIN 2.6 g/dl (3.4-5.0); BILIRUBIN,TOTAL 0.4 mg/dL (0.2-1); BLOOD UREA NITROGEN 6.7 mg/dL (7-18); CALCIUM 8.5 mg/dL (8.5-10.1); CREATININE 0.9 mg/dL (0.55-1.3); POTASSIUM 3.7 mmol/L (3.5-5.1); TOT PROT 5.9 g/dl (6.4-8.2)
[2018-08-08] MEDS: metoPROLOL SUCCINATE 25 MG TAB.SR.24H (FP) PO SCH (09:47)
[2018-08-08] MEDS: ACETAMINOPHEN 325 MG TABLET (FP) PO PRN ×2 (09:47→17:33)
[2018-08-08] MEDS: NAPH,MB-DB/K PH,MBDB POWDER PACKET PO SCH (09:48)
[2018-08-08] MEDS: ASPIRIN 81 MG CHEWABLE TABLETS PO SCH (09:48)
--- NOTE | 2018-08-08 09:53 | CON.ID ---
Consult Consult Specialty:: infectious diseases Referred by:: Reason for Consultation:: fevers - History of Present Illness Chief Complaint: weakness,fevers History of Present Illness: 68 y/o F with no past medical history who was admitted to the hospital with weakness,dirrhoea nausea. Pt endorses that this past , she began to feel rather weak and slept through most of the day. 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 Pt also states that she has had to urinate much more frequently during this time period. Diarrhea is described as coming out in " Squirts" and is non-bloody and not dark in color. Denies any inciting events. States she did consume a fruit cup before her symptoms began. patient mentions that she slept mostly for 2 days straight and her niece finally brought her to the hospital on admission she was started on ceftriaxone patient has spiked fever through ceftriaxone and has gone as high as 102 patient has shivering and chills associated with it ceftriaxone was changed to zosyn all her work up has been negative so far i ahve been called to evaluate the cause of her fever - History Source History Provided By: Patient Limitations to Obtaining History: No Limitations - Smoking History Smoking history: Never smoked Home Medications - Allergies Allergies/Adverse Reactions: Allergies Allergy/AdvReac Type Severity Reaction Status Date / Time No Known Allergies Allergy Verified 08/04/18 10:30 Review of Systems - Review of Systems Constitutional: reports: Chills, Fever Eyes: reports: No Symptoms HENT: reports: No Symptoms Neck: reports: No Symptoms Cardiovascular: reports: No Symptoms Respiratory: reports: Cough Gastrointestinal: reports: No Symptoms, Diarrhea Genitourinary: reports: No Symptoms Musculoskeletal: reports: No Symptoms Integumentary: reports: No Symptoms Neurological: reports: No Symptoms Endocrine: reports: No Symptoms Hematology/Lymphatic: reports: No Symptoms Psychiatric: reports: No Symptoms Physical Exam Vital Signs: Vital Signs Temperature 99.5 F 08/08/18 08:53 Pulse Rate 74 08/08/18 08:53 Respiratory Rate 20 08/08/18 08:53 Blood Pressure 103/66 08/08/18 08:53 O2 Sat by Pulse Oximetry (%) 96 08/08/18 08:52 Constitutional: Yes: Well Nourished, No Distress, Calm Eyes: Yes: Conjunctiva Clear HENT: Yes: Atraumatic, Normocephalic Neck: Yes: Supple, Trachea Midline Cardiovascular: Yes: Regular Rate and Rhythm Respiratory: Yes: Regular, CTA Bilaterally Gastrointestinal: Yes: Normal Bowel Sounds, Soft Musculoskeletal: Yes: WNL Extremities: Yes: WNL Neurological: Yes: Alert, Oriented Psychiatric: Yes: Alert, Oriented Labs: CBC, BMP 08/08/18 06:56 08/08/18 06:56 Imaging - Results Chest X-ray: Report Reviewed, Image Reviewed Cat Scan: Report Reviewed, Image Reviewed Assessment/Plan 68 y/o lady with no sig PMH who presented with fever and diarrhea 1- Fever: unclear source. U cx negative , but has significant pyuria. cxray with questionable findings. had diarrhea prior to admission 2- Demand ischemia/elevated trop: - pneumonia uti after looking at the complete history and symptoms,i am initially going to treat the patient for pneumonia and switch the abx to zosyn if she continues to spike on zosyn--repeat blood cx and also do oter blood parasite exam i have ordered a smear for the same close watch hydration as needed rest as per the team
--- NOTE | 2018-08-08 10:04 | PN ---
Progress Note, Physician History of Present Illness: Defervescing, feels better. No events on telemetry. - Current Medication List Current Medications: Active Medications Acetaminophen (Tylenol -) 650 mg PO Q6H PRN PRN Reason: FEVER Last Admin: 08/08/18 09:47 Dose: 650 mg Acetaminophen (Ofirmev Injection -) 1,000 mg IVPB Q6H PRN PRN Reason: FEVER Aspirin (Asa -) 81 mg PO DAILY COUNT INCLUDES THE [facility] Last Admin: 08/08/18 09:48 Dose: 81 mg Heparin Sodium (Porcine) (Heparin -) 5,000 unit SQ TID COUNT INCLUDES THE [facility] Last Admin: 08/08/18 06:26 Dose: 5,000 unit Azithromycin (Zithromax 500mg Ivpb (Pre-Docked)) 500 mg in 250 mls @ 250 mls/ hr IVPB Q24H ELIDA Last Admin: 08/07/18 18:45 Dose: 250 mls/hr Piperacillin Sod/Tazobactam (Sod 3.375 gm/ Dextrose) 50 mls @ 100 mls/hr IVPB Q8H-IV ELIDA; Protocol Piperacillin Sod/Tazobactam (Sod 3.375 gm/ Dextrose) 50 mls @ 100 mls/hr IVPB Q8H-IV ELIDA; Protocol Stop: 08/08/18 10:29 Last Admin: 08/08/18 09:48 Dose: 100 mls/hr Piperacillin Sod/Tazobactam (Sod 3.375 gm/ Dextrose) 50 mls @ 100 mls/hr IVPB Q8H-IV ELIDA; Protocol Last Admin: 08/08/18 09:47 Dose: 100 mls/hr Metoprolol Succinate (Toprol Xl -) 25 mg PO DAILY COUNT INCLUDES THE [facility] Last Admin: 08/08/18 09:47 Dose: 25 mg Potassium Phos/Sodium Phos (Phos-Nak Packet -) 1 packet PO BID COUNT INCLUDES THE [facility] Last Admin: 08/08/18 09:48 Dose: 1 packet - Objective Vital Signs: Vital Signs Temperature 99.5 F 08/08/18 08:53 Pulse Rate 74 08/08/18 08:53 Respiratory Rate 20 08/08/18 08:53 Blood Pressure 103/66 08/08/18 08:53 O2 Sat by Pulse Oximetry (%) 96 08/08/18 08:52 Constitutional: Yes: No Distress, Calm Neck: Yes: Supple Cardiovascular: Yes: Regular Rate and Rhythm Respiratory: Yes: Regular, CTA Bilaterally, On Nasal O2 Gastrointestinal: Yes: Normal Bowel Sounds, Soft, Abdomen, Obese Edema: No Labs: CBC, BMP 08/08/18 06:56 08/08/18 06:56 INR, PTT INR 1.16 (0.83-1.09) H 08/05/18 06:11 - ....Imaging EKG: Report Reviewed (Tele: NSR no events) Problem List - Problems (1) Demand ischemia Code(s): I24.8 - OTHER FORMS OF ACUTE ISCHEMIC HEART DISEASE (2) Diarrhea Code(s): R19.7 - DIARRHEA, UNSPECIFIED Qualifiers: Diarrhea type: unspecified type Qualified Code(s): R19.7 - Diarrhea, unspecified (3) Elevated troponin Code(s): R74.8 - ABNORMAL LEVELS OF OTHER SERUM ENZYMES (4) UTI (urinary tract infection) Code(s): N39.0 - URINARY TRACT INFECTION, SITE NOT SPECIFIED Qualifiers: Urinary tract infection type: site unspecified Hematuria presence: without hematuria Qualified Code(s): N39.0 - Urinary tract infection, site not specified (5) Weak Code(s): R53.1 - WEAKNESS (6) Hyponatremia Code(s): E87.1 - HYPO-OSMOLALITY AND HYPONATREMIA Assessment/Plan 08/06/2018 Echo: Normal LV and RV size and fxn, EF 65-70%, grade I diastolic dysfunction, mod TR RVSP 28, mild MR, TN 08/07/2018 Chest/Abd & pelvic CT: DULCE PNA, left base ATX and effusion, splenic flexure diverticulosis w/o inflammation 1. CAD, demand ischemia 2. UTI, sepsis source 3. DULCE PNA 4. Hyponatremia improving PLAN: 1. Troponin downtrending 2. Continue ASA 81 mg QD and Toprol XL 25 mg QD as hemodynamics tolerate 3. Empiric antibiotic coverage per ID 4. DVT prophylaxis 5. D/c telemetry
--- NOTE | 2018-08-08 16:10 | PN ---
Physical Exam: Patient is a 68 yo Female with no significant PMH, presented to ED with diarrhea and nausea, admitted due to UTI and elevated Troponin levels. SUBJECTIVE: Patient seen and examined by bedside. She was alert, well oriented in time and place, and cooperative. OBJECTIVE: Vital Signs Period Temp Pulse Resp BP Sys/Simon Pulse Ox Last 24 Hr 99.0 F-103.1 F 65-83 16-20 103-143/51-74 96-96 GENERAL: The patient is awake, alert, and fully oriented, in no acute distress. HEAD: Normal with no signs of trauma. EYES: PERRL, no ptosis. ENT: Ears normal, nares patent, oropharynx clear without exudates, moist mucous membranes. NECK: Trachea midline LUNGS: Breath sounds equal, clear to auscultation bilaterally, no wheezes, no crackles, no accessory muscle use. HEART: Regular rate and rhythm, S1, S2 without murmur, rub or gallop. ABDOMEN: Soft, nontender, nondistended, normoactive bowel sounds, no guarding, no rebound, no hepatosplenomegaly, small lipoma felt in RLQ. EXTREMITIES: 2+ pulses, warm, well-perfused NEUROLOGICAL: Normal speech, gait not observed. PSYCH: Normal mood, normal affect. SKIN: Warm, dry, normal turgor, no rashes or lesions noted Laboratory Results - last 24 hr 08/08/18 08/08/18 06:56 06:56 WBC 6.7 RBC 4.29 Hgb 11.4 Hct 35.0 MCV 81.6 MCH 26.7 MCHC 32.7 RDW 14.0 Plt Count 137 MPV 9.3 Absolute Neuts (auto) 4.8 Neutrophils % 70.7 Lymphocytes % 17.6 D Monocytes % 11.0 H Eosinophils % 0.2 Basophils % 0.5 Nucleated RBC % 0 Sodium 135 L Potassium 3.7 Chloride 99 Carbon Dioxide 31 Anion Gap 6 L BUN 6.7 L Creatinine 0.9 Est GFR (CKD-EPI)AfAm 75.08 Est GFR (CKD-EPI)NonAf 64.78 Random Glucose 108 H Calcium 8.5 Phosphorus 3.0 Total Bilirubin 0.4 AST 90 H ALT 58 Alkaline Phosphatase 97 Total Protein 5.9 L Albumin 2.6 L Active Medications Generic Name Dose Route Start Last Admin Trade Name Freq PRN Reason Stop Dose Admin Acetaminophen 650 mg 08/07/18 16:51 08/08/18 09:47 Tylenol - PO 650 mg Q6H PRN Administration FEVER Acetaminophen 1,000 mg 08/08/18 02:05 Ofirmev Injection - IVPB Q6H PRN FEVER Aspirin 81 mg 08/06/18 12:30 08/08/18 09:48 Asa - PO 81 mg DAILY ELIDA Administration Heparin Sodium (Porcine) 5,000 unit 08/04/18 22:00 08/08/18 14:03 Heparin - SQ 5,000 unit TID ELIDA Administration Piperacillin Sod/Tazobactam 50 mls @ 100 mls/hr 08/08/18 10:00 08/08/18 09:47 Sod 3.375 gm/ Dextrose IVPB 100 mls/hr Q8H-IV ELIDA Administration Protocol Metoprolol Succinate 25 mg 08/06/18 12:30 08/08/18 09:47 Toprol Xl - PO 25 mg DAILY ELIDA Administration CBC, BMP 08/08/18 06:56 08/08/18 06:56 ASSESSMENT/PLAN: Patient is a 68 yo Female with no significant PMH, presented to ED with diarrhea and nausea, admitted due to UTI and elevated Troponin levels. #Fever -Currently on Zosyn 3.375gm Q8H IV (started 08/07) Previously on Azythromycin 500mg Q24 once (08/07) and Ceftriaxone (08/05-08/07) -Fever pattern (8PM 103.1, 10PM 101.2, 2AM 102.7, 7AM 99.2, 9AM 99.5) Tylenol IV (08/07,08/08) , started on Tylenol PO Q6H (08/07) -ID consult: Switch to Zosyn, significant pyuria, if fever persists repeat blood cx + parasite exam, smear ordered (08/08) -CT Chest: L upper lobe pneumonia + mild atelectic changes in L lung base and small L pleural effusion (08/07) -CT Abdomen: Multiple diverticula in splenic flexure, no evidence of acute diverticulits (08/07) -Reported one bowel movement today at 6AM, dark brown and semi firm (like putty) -Urine cx no growth (08/06) Urine Legionella NEG (08/06) -Stool cx no growth (08/06) -Blood cx no growth (08/06) #ACS: -Resolved, Troponin plateaued -Continue Aspirin and Metoprolol #Hypophosphetemia: -Follow Phos; daily pattern from earliest to latest (2.1, NR, 2.1, 3.0) -Follow K; daily pattern from earliest to latest (3.6, 3.8, 3.7) -Phos Nak packet #DVT -Heparin prophylaxis #FEN -No fluids -Monitor K, Phos, BUN (8.2, 6.9, 6.7) Visit type - Emergency Visit Emergency Visit: Yes ED Registration Date: 08/04/18 Care time: The patient presented to the Emergency Department on the above date and was hospitalized for further evaluation of their emergent condition. - New Patient This patient is new to me today: No - Critical Care Critical Care patient: No - Discharge Referral Referred to [facility] Med P.C.: No
[2018-08-09] MEDS ORDERED: PIPERACILLIN/TAZOBACTAM 3.375 GM VIAL IVPB ONE ×2 (03:37→09:11)
[2018-08-09] MEDS ORDERED: DEXTROSE 5%-WATER - 50 ML IVPB ONE ×2 (03:37→09:11)
[2018-08-09] MEDS: PIPERACILLIN/TAZOB 3.375 GM 3.375 GM in DEXTROSE 5%-WATER - 50 ML IVPB SCH ×3 (04:03→17:20)
[2018-08-09] MEDS: HEPARIN NA (PORCINE) 5,000 UNITS/ML 1ML VIAL SQ SCH ×3 (06:09→21:29)
--- NOTE | 2018-08-09 06:59 | PN ---
Progress Note (short form) - Note Progress Note: Chief Complaint: Events noted, notes reviewed, denies any chest pain or dyspnea History of Present Illness: Seen and examined on telemetry. Events noted, notes reviewed, denies any chest pain or dyspnea Echocardiography dated 08/06/2018 revealed normal LV and RV size and function, LVEF 65-70%, grade I diastolic dysfunction, moderate TR with RVSP 28, mild MR - Current Medication List Current Medications Acetaminophen (Tylenol -) 650 mg PO Q6H PRN PRN Reason: FEVER Last Admin: 08/08/18 17:33 Dose: 650 mg Acetaminophen (Ofirmev Injection -) 1,000 mg IVPB Q6H PRN PRN Reason: FEVER Aspirin (Asa -) 81 mg PO DAILY [facility] Last Admin: 08/09/18 09:22 Dose: 81 mg Heparin Sodium (Porcine) (Heparin -) 5,000 unit SQ TID ELIDA Last Admin: 08/09/18 06:09 Dose: 5,000 unit Piperacillin Sod/Tazobactam (Sod 3.375 gm/ Dextrose) 50 mls @ 100 mls/hr IVPB Q8H-IV ELIDA; Protocol Last Admin: 08/09/18 09:22 Dose: 100 mls/hr Metoprolol Succinate (Toprol Xl -) 25 mg PO DAILY ELIDA Last Admin: 08/09/18 09:22 Dose: 25 mg Review of Systems Cardiovascular: As noted above Respiratory: denies Cough or Sputum Production Gastrointestinal: denies: Nausea, Vomiting, Diarrhea, Constipation or Abdominal Discomfort Musculoskeletal: No Symptoms Reported - Objective Vital Signs: Last Vital Signs Temp Pulse Resp BP Pulse Ox 99.4 F 72 20 131/74 96 08/09/18 01:50 08/09/18 06:00 08/09/18 06:00 08/09/18 06:00 08/08/18 20:17 Intake & Output 08/06/18 08/07/18 08/08/18 08/09/18 23:59 23:59 23:59 23:59 Intake Total 332 390 9627 Balance 624 255 0952 Weight 157 lb Constitutional: No Distress, Calm Neck: Supple Negative JVD No Bruit Respiratory: Diminished Breath Sounds at the Bases Cardiovascular: S1 S2 Regular Rate Rhythm Gastrointestinal: Soft Benign Normal Bowel Sounds Ext: Negative Edema Labs: CBC, BMP 08/09/18 06:10 08/09/18 06:10 Hepatic Panel Total Bilirubin 0.4 mg/dL (0.2-1) 08/09/18 06:10 AST 145 U/L (15-37) H 08/09/18 06:10 ALT 88 U/L (13-61) H 08/09/18 06:10 Alkaline Phosphatase 161 U/L (45-117) H 08/09/18 06:10 Albumin 3.1 g/dl (3.4-5.0) L 08/09/18 06:10 INR, PTT INR 1.16 (0.83-1.09) H 08/05/18 06:11 ASSESSMENT: 1. CAD with demand ischemia angina pectoris 2. Diastolic LV dysfunction with clinical class 0 NYHA classification LV failure 3. Pneumonia, resolving 4. UTI, uro-sepsis PLAN: 1. Continue Toprol XL 2. Continue ASA 3. Antibiotics as per the primary team 4. Can be transferred to floor care from the cardiovascular point of view Ramon Pugh M.D.
[2018-08-09 07:55] LABS: HEMATOCRIT 34.7 % (32.4-45.2); HEMOGLOBIN 11.4 GM/dL (10.7-15.3); MCH 26.7 pg (25.7-33.7); MCHC 32.8 g/dl (32.0-36.0); MEAN CELL VOLUME 81.4 fl (80-96); MEAN PLT VOLUME 9.6 fl (7.5-11.1); RBC 4.26 M/mm3 (3.60-5.2); RDW 14.1 % (11.6-15.6); WHITE BLOOD COUNT 5.1 K/mm3 (4.0-10.0)
[2018-08-09 08:35] LABS: ALBUMIN 3.1 g/dl (3.4-5.0); BILIRUBIN,TOTAL 0.4 mg/dL (0.2-1); BLOOD UREA NITROGEN 6.4 mg/dL (7-18); CALCIUM 8.6 mg/dL (8.5-10.1); CREATININE 0.9 mg/dL (0.55-1.3); POTASSIUM 3.8 mmol/L (3.5-5.1); TOT PROT 6.4 g/dl (6.4-8.2)
[2018-08-09 08:36] LABS: PLATELET COUNT 176 K/MM3 (134-434)
[2018-08-09] MEDS: ASPIRIN 81 MG CHEWABLE TABLETS PO SCH (09:22)
[2018-08-09] MEDS: metoPROLOL SUCCINATE 25 MG TAB.SR.24H (FP) PO SCH (09:22)
--- NOTE | 2018-08-09 13:18 | PN ---
Progress Note, Physician History of Present Illness: stable still spiking fevers - Current Medication List Current Medications: Active Medications Acetaminophen (Tylenol -) 650 mg PO Q6H PRN PRN Reason: FEVER Last Admin: 08/08/18 17:33 Dose: 650 mg Acetaminophen (Ofirmev Injection -) 1,000 mg IVPB Q6H PRN PRN Reason: FEVER Aspirin (Asa -) 81 mg PO DAILY [facility] Last Admin: 08/09/18 09:22 Dose: 81 mg Heparin Sodium (Porcine) (Heparin -) 5,000 unit SQ TID ELDIA Last Admin: 08/09/18 06:09 Dose: 5,000 unit Piperacillin Sod/Tazobactam (Sod 3.375 gm/ Dextrose) 50 mls @ 100 mls/hr IVPB Q8H-IV ELIDA; Protocol Last Admin: 08/09/18 09:22 Dose: 100 mls/hr Metoprolol Succinate (Toprol Xl -) 25 mg PO DAILY [facility] Last Admin: 08/09/18 09:22 Dose: 25 mg - Objective Vital Signs: Vital Signs Temperature 98.9 F 08/09/18 10:00 Pulse Rate 78 08/09/18 10:00 Respiratory Rate 20 08/09/18 10:00 Blood Pressure 120/82 08/09/18 10:00 O2 Sat by Pulse Oximetry (%) 100 08/09/18 09:00 Constitutional: Yes: No Distress, Calm Cardiovascular: Yes: Regular Rate and Rhythm Respiratory: Yes: Regular, CTA Bilaterally Gastrointestinal: Yes: Normal Bowel Sounds, Soft Musculoskeletal: Yes: WNL Extremities: Yes: WNL Neurological: Yes: Alert, Oriented Psychiatric: Yes: Alert, Oriented Labs: CBC, BMP 08/09/18 06:10 08/09/18 06:10 INR, PTT INR 1.16 (0.83-1.09) H 08/05/18 06:11 Assessment/Plan 68 y/o lady with no sig PMH who presented with fever and diarrhea 1- Fever: unclear source. U cx negative , but has significant pyuria. cxray with questionable findings. had diarrhea prior to admission 2- Demand ischemia/elevated trop: - pneumonia uti r/o blood parasite plan continue abx make sure that parasite blood work is followed close watch if continues to have fever tabby schwartz
--- NOTE | 2018-08-09 17:06 | PN ---
Progress Note (short form) - Note Progress Note: Patient is comfortable with no acute distress. No fever or chill, feels better. Vital Signs Temperature 99.4 F 08/09/18 14:00 Pulse Rate 68 08/09/18 14:00 Respiratory Rate 20 08/09/18 14:00 Blood Pressure 129/75 08/09/18 14:00 O2 Sat by Pulse Oximetry (%) 100 08/09/18 09:00 GENERAL: The patient is awake, alert, and fully oriented, in no acute distress. HEAD: Normal with no signs of trauma. EYES: PERRL, extraocular movements intact, sclera anicteric, conjunctiva clear. ENT: Ears normal, oropharynx clear without exudates, moist mucous membranes. NECK: Trachea midline, full range of motion, supple. LUNGS: Breath sounds equal, clear to auscultation bilaterally, no wheezes, no crackles, no accessory muscle use. HEART: Regular rate and rhythm, S1, S2 without murmur, rub or gallop. ABDOMEN: Soft, NT,ND, normoactive bowel sounds, no guarding, no rebound, no hepatosplenomegaly, no masses. EXTREMITIES: 2+ pulses, warm, well-perfused, no edema. NEUROLOGICAL: Cranial nerves II through XII grossly intact. Normal speech, gait is stable . PSYCH: Normal mood, normal affect. SKIN: Warm, dry, normal turgor, no rashes or lesions noted CBCD WBC 5.1 K/mm3 (4.0-10.0) 08/09/18 06:10 RBC 4.26 M/mm3 (3.60-5.2) 08/09/18 06:10 Hgb 11.4 GM/dL (10.7-15.3) 08/09/18 06:10 Hct 34.7 % (32.4-45.2) 08/09/18 06:10 MCV 81.4 fl (80-96) 08/09/18 06:10 MCHC 32.8 g/dl (32.0-36.0) 08/09/18 06:10 RDW 14.1 % (11.6-15.6) 08/09/18 06:10 Plt Count 176 K/MM3 (134-434) D 08/09/18 06:10 MPV 9.6 fl (7.5-11.1) 08/09/18 06:10 CMP Sodium 136 mmol/L (136-145) 08/09/18 06:10 Potassium 3.8 mmol/L (3.5-5.1) 08/09/18 06:10 Chloride 100 mmol/L (98-107) 08/09/18 06:10 Carbon Dioxide 30 mmol/L (21-32) 08/09/18 06:10 Anion Gap 6 MMOL/L (8-16) L 08/09/18 06:10 BUN 6.4 mg/dL (7-18) L 08/09/18 06:10 Creatinine 0.9 mg/dL (0.55-1.3) 08/09/18 06:10 Random Glucose 108 mg/dL (74-106) H 08/09/18 06:10 Calcium 8.6 mg/dL (8.5-10.1) 08/09/18 06:10 Total Bilirubin 0.4 mg/dL (0.2-1) 08/09/18 06:10 AST 145 U/L (15-37) H 08/09/18 06:10 ALT 88 U/L (13-61) H 08/09/18 06:10 Alkaline Phosphatase 161 U/L (45-117) H 08/09/18 06:10 Total Protein 6.4 g/dl (6.4-8.2) 08/09/18 06:10 Albumin 3.1 g/dl (3.4-5.0) L 08/09/18 06:10 CARDIAC ENZYMES Creatine Kinase 336 U/L (26-192) H 08/06/18 06:36 Troponin I 0.09 ng/ml (0.00-0.05) H 08/05/18 06:11 Current Medications Generic Name Dose Route Start Last Admin Trade Name Freq PRN Reason Stop Dose Admin Acetaminophen 650 mg 08/07/18 16:51 08/08/18 17:33 Tylenol - PO 650 mg Q6H PRN Administration FEVER Acetaminophen 1,000 mg 08/08/18 02:05 Ofirmev Injection - IVPB Q6H PRN FEVER Aspirin 81 mg 08/06/18 12:30 08/09/18 09:22 Asa - PO 81 mg DAILY ELIDA Administration Heparin Sodium (Porcine) 5,000 unit 08/04/18 22:00 08/09/18 14:19 Heparin - SQ 5,000 unit TID ELIDA Administration Piperacillin Sod/Tazobactam 50 mls @ 100 mls/hr 08/08/18 10:00 08/09/18 09:22 Sod 3.375 gm/ Dextrose IVPB 100 mls/hr Q8H-IV ELIDA Administration Protocol Metoprolol Succinate 25 mg 08/06/18 12:30 08/09/18 09:22 Toprol Xl - PO 25 mg DAILY ELIDA Administration 08/06/18 07:56 Blood - Peripheral Venous Blood Culture - Preliminary NO GROWTH OBTAINED AFTER 48 HOURS, INCUBATION TO CONTINUE FOR 3 DAYS. 08/06/18 08:24 Blood - Peripheral Venous Blood Culture - Preliminary NO GROWTH OBTAINED AFTER 48 HOURS, INCUBATION TO CONTINUE FOR 3 DAYS. 08/05/18 06:20 Blood - Peripheral Venous Blood Culture - Preliminary NO GROWTH OBTAINED AFTER 72 HOURS, INCUBATION TO CONTINUE FOR 2 DAYS. 08/05/18 06:11 Blood - Peripheral Venous Blood Culture - Preliminary NO GROWTH OBTAINED AFTER 72 HOURS, INCUBATION TO CONTINUE FOR 2 DAYS. 08/06/18 15:00 Urine - Urine Clean Catch Legionella Antigen - Final 08/06/18 15:00 Urine - Urine Clean Catch Streptococcus pneumoniae Antigen ( M - Final 08/06/18 15:00 Stool Salmonella/Shigella Culture - Preliminary NO ENTERIC PATHOGENS, 24 HOURS, ON PRIMARY PLATES 08/06/18 15:00 Stool Yersinia Culture - Preliminary NO ENTERIC PATHOGENS, 24 HOURS, ON PRIMARY PLATES 08/06/18 15:00 Stool Vibrio Culture - Final NO GROWTH OF VIBRIO SPECIES OBTAINED 08/06/18 15:00 Stool Escherichia coli 0157 Culture - Final NO GROWTH OF E COLI 0157 OBTAINED 08/06/18 15:00 Urine - Urine Clean Catch Urine Culture - Final NO GROWTH OBTAINED 08/04/18 14:17 Urine - Urine Clean Catch Urine Culture - Final Normal Urogenital Sandee ASSESSMENT AND PLAN: patient is a 68yo female with PMHx who presented with fever and diarrhea on CT of chest was found to have DULCE Pneumonia: # DULCE Pneumonia on IV zosyn s/p zithromax. blood cx neg to date no vegetations on Echo. # Acute UTI On zosyn continue # Demand ischemia/elevated trop: cont ASa and BB # hypophosphatemia:repleted, is 3.0 now DVT PX : heparin sq can be discharge in am if stable. Visit type - Emergency Visit Emergency Visit: Yes ED Registration Date: 08/04/18 Care time: The patient presented to the Emergency Department on the above date and was hospitalized for further evaluation of their emergent condition. - New Patient This patient is new to me today: No - Critical Care Critical Care patient: No - Discharge Referral [facility]erred to [facility] Med P.C.: No
[2018-08-10] MEDS ORDERED: PIPERACILLIN/TAZOBACTAM 3.375 GM VIAL IVPB ONE (01:57)
[2018-08-10] MEDS ORDERED: DEXTROSE 5%-WATER - 50 ML IVPB ONE (01:57)
[2018-08-10] MEDS: PIPERACILLIN/TAZOB 3.375 GM 3.375 GM in DEXTROSE 5%-WATER - 50 ML IVPB SCH ×2 (02:04→10:47)
[2018-08-10] MEDS: HEPARIN NA (PORCINE) 5,000 UNITS/ML 1ML VIAL SQ SCH ×3 (06:22→21:43)
--- NOTE | 2018-08-10 06:38 | PN ---
Physical Exam: SUBJECTIVE: Patient seen and examined OBJECTIVE: Vital Signs Period Temp Pulse Resp BP Sys/Simon Pulse Ox Last 24 Hr 97.6 F-99.4 F 62-78 20-20 120-142/68-85 99-100 GENERAL: The patient is awake, alert, and fully oriented, in no acute distress. HEAD: Normal with no signs of trauma. EYES: PERRL, extraocular movements intact, sclera anicteric, conjunctiva clear. No ptosis. NECK: Trachea midline, full range of motion, supple. LUNGS: Breath sounds equal, clear to auscultation bilaterally HEART: Regular rate and rhythm, S1, S2 without murmur, rub or gallop. ABDOMEN: Soft, nontender, nondistended, normoactive bowel sounds, no guarding, no rebound, no hepatosplenomegaly, no masses. PSYCH: Normal mood, normal affect. SKIN: Warm, dry, normal turgor, no rashes or lesions noted Laboratory Results - last 24 hr 08/09/18 08/09/18 06:10 06:10 WBC 5.1 RBC 4.26 Hgb 11.4 Hct 34.7 MCV 81.4 MCH 26.7 MCHC 32.8 RDW 14.1 Plt Count 176 D MPV 9.6 Sodium 136 Potassium 3.8 Chloride 100 Carbon Dioxide 30 Anion Gap 6 L BUN 6.4 L Creatinine 0.9 Est GFR (CKD-EPI)AfAm 75.08 Est GFR (CKD-EPI)NonAf 64.78 Random Glucose 108 H Calcium 8.6 Total Bilirubin 0.4 AST 145 H ALT 88 H Alkaline Phosphatase 161 H Total Protein 6.4 Albumin 3.1 L Active Medications Generic Name Dose Route Start Last Admin Trade Name Freq PRN Reason Stop Dose Admin Acetaminophen 650 mg 08/07/18 16:51 08/08/18 17:33 Tylenol - PO 650 mg Q6H PRN Administration FEVER Acetaminophen 1,000 mg 08/08/18 02:05 Ofirmev Injection - IVPB Q6H PRN FEVER Aspirin 81 mg 08/06/18 12:30 08/09/18 09:22 Asa - PO 81 mg DAILY ELIDA Administration Heparin Sodium (Porcine) 5,000 unit 08/04/18 22:00 08/10/18 06:22 Heparin - SQ 5,000 unit TID ELIDA Administration Piperacillin Sod/Tazobactam 50 mls @ 100 mls/hr 08/08/18 10:00 08/10/18 02:04 Sod 3.375 gm/ Dextrose IVPB 100 mls/hr Q8H-IV ELIDA Administration Protocol Metoprolol Succinate 25 mg 08/06/18 12:30 08/09/18 09:22 Toprol Xl - PO 25 mg DAILY ELIDA Administration ASSESSMENT/PLAN: Patient is a 68 yo Female with no significant PMH, presented to ED with diarrhea and nausea, admitted due to UTI and elevated Troponin levels. #Fever -Currently on Zosyn 3.375gm Q8H IV (started 08/07) Previously on Azythromycin 500mg Q24 once (08/07) and Ceftriaxone (08/05-08/07) -Fever pattern (8PM 103.1, 10PM 101.2, 2AM 102.7, 7AM 99.2, 9AM 99.5) Tylenol IV (08/07,08/08) , started on Tylenol PO Q6H (08/07) -ID consult: Switch to Zosyn, significant pyuria, if fever persists repeat blood cx + parasite exam, smear ordered (08/08) -CT Chest: L upper lobe pneumonia + mild atelectic changes in L lung base and small L pleural effusion (08/07) -CT Abdomen: Multiple diverticula in splenic flexure, no evidence of acute diverticulits (08/07) -Reported one bowel movement today at 6AM, dark brown and semi firm (like putty) -Urine cx no growth (08/06) Urine Legionella NEG (08/06) -Stool cx no growth (08/06) -Blood cx no growth (08/06) #ACS: -Cardio consut:continue ASA and Tropolol, cleared by cardio -Resolved, Troponin plateaued -Continue Aspirin and Metoprolol #Hypophosphetemia: -Follow Phos; daily pattern from earliest to latest (2.1, NR, 2.1, 3.0) -Follow K; daily pattern from earliest to latest (3.6, 3.8, 3.7) -Phos Nak packet #DVT -Heparin prophylaxis #FEN -No fluids -Monitor K, Phos, BUN (8.2, 6.9, 6.7) Visit type - Emergency Visit Emergency Visit: Yes ED Registration Date: 08/04/18 Care time: The patient presented to the Emergency Department on the above date and was hospitalized for further evaluation of their emergent condition. - New Patient This patient is new to me today: No - Critical Care Critical Care patient: No - Discharge Referral Referred to [facility] Med P.C.: No
[2018-08-10 08:10] LABS: HEMOGLOBIN 11.9 GM/dL (10.7-15.3); MCH 26.4 pg (25.7-33.7); MCHC 32.3 g/dl (32.0-36.0); MEAN CELL VOLUME 81.9 fl (80-96); MEAN PLT VOLUME 8.8 fl (7.5-11.1); PLATELET COUNT 227 K/MM3 (134-434); RBC 4.52 M/mm3 (3.60-5.2); RDW 14.5 % (11.6-15.6); WHITE BLOOD COUNT 4.9 K/mm3 (4.0-10.0)
[2018-08-10 09:05] LABS: ALBUMIN 3.2 g/dl (3.4-5.0); BILIRUBIN,TOTAL 0.4 mg/dL (0.2-1); BLOOD UREA NITROGEN 13.2 mg/dL (7-18); CALCIUM 7.4 mg/dL (8.5-10.1); POTASSIUM 4.5 mmol/L (3.5-5.1); TOT PROT 6.9 g/dl (6.4-8.2)
--- NOTE | 2018-08-10 09:37 | PN ---
Progress Note, Physician History of Present Illness: Remains afebrile, feels better. No events on telemetry. - Current Medication List Current Medications: Active Medications Acetaminophen (Tylenol -) 650 mg PO Q6H PRN PRN Reason: FEVER Last Admin: 08/08/18 17:33 Dose: 650 mg Acetaminophen (Ofirmev Injection -) 1,000 mg IVPB Q6H PRN PRN Reason: FEVER Aspirin (Asa -) 81 mg PO DAILY [facility] Last Admin: 08/09/18 09:22 Dose: 81 mg Heparin Sodium (Porcine) (Heparin -) 5,000 unit SQ TID ELIDA Last Admin: 08/10/18 06:22 Dose: 5,000 unit Piperacillin Sod/Tazobactam (Sod 3.375 gm/ Dextrose) 50 mls @ 100 mls/hr IVPB Q8H-IV ELIDA; Protocol Last Admin: 08/10/18 02:04 Dose: 100 mls/hr Metoprolol Succinate (Toprol Xl -) 25 mg PO DAILY [facility] Last Admin: 08/09/18 09:22 Dose: 25 mg - Objective Vital Signs: Vital Signs Temperature 98.1 F 08/10/18 06:16 Pulse Rate 65 08/10/18 06:16 Respiratory Rate 20 08/10/18 06:16 Blood Pressure 138/85 08/10/18 06:16 O2 Sat by Pulse Oximetry (%) 99 08/09/18 20:10 Constitutional: Yes: No Distress, Calm Neck: Yes: Supple Cardiovascular: Yes: Regular Rate and Rhythm Respiratory: Yes: Regular, CTA Bilaterally Gastrointestinal: Yes: Normal Bowel Sounds, Soft Edema: No Labs: CBC, BMP 08/10/18 07:43 08/10/18 07:43 INR, PTT INR 1.16 (0.83-1.09) H 08/05/18 06:11 Problem List - Problems (1) Demand ischemia Code(s): I24.8 - OTHER FORMS OF ACUTE ISCHEMIC HEART DISEASE (2) Diarrhea Code(s): R19.7 - DIARRHEA, UNSPECIFIED Qualifiers: Diarrhea type: unspecified type Qualified Code(s): R19.7 - Diarrhea, unspecified (3) Elevated troponin Code(s): R74.8 - ABNORMAL LEVELS OF OTHER SERUM ENZYMES (4) UTI (urinary tract infection) Code(s): N39.0 - URINARY TRACT INFECTION, SITE NOT SPECIFIED Qualifiers: Urinary tract infection type: site unspecified Hematuria presence: without hematuria Qualified Code(s): N39.0 - Urinary tract infection, site not specified (5) Weak Code(s): R53.1 - WEAKNESS (6) Hyponatremia Code(s): E87.1 - HYPO-OSMOLALITY AND HYPONATREMIA Assessment/Plan 08/06/2018 Echo: Normal LV and RV size and fxn, EF 65-70%, grade I diastolic dysfunction, mod TR RVSP 28, mild MR, [place] 08/07/2018 Chest/Abd & pelvic CT: DULCE PNA, left base ATX and effusion, splenic flexure diverticulosis w/o inflammation 1. CAD with demand ischemia angina pectoris 2. Diastolic LV dysfunction with clinical class 0 NYHA classification LV failure 3. DULCE Pneumonia, resolving 4. UTI, uro-sepsis PLAN: 1. Troponin downtrending 2. Continue ASA 81 mg QD and Toprol XL 25 mg QD as hemodynamics tolerate 3. Empiric antibiotic coverage per ID 4. DVT prophylaxis 5. D/c telemetry, can be transferred to floor care from the cardiovascular point of view 4.
[2018-08-10] MEDS ORDERED: SODIUM CHLORIDE 0.45% 1,000 ML IV SCH (10:45)
[2018-08-10] MEDS: metoPROLOL SUCCINATE 25 MG TAB.SR.24H (FP) PO SCH (10:48)
[2018-08-10] MEDS: ASPIRIN 81 MG CHEWABLE TABLETS PO SCH (10:48)
--- NOTE | 2018-08-10 12:15 | DS ---
Physical Exam: The patient is a 68 year old female with no significant past medical history, admitted due to diearrhea with nausea, UTI, and elevated Troponin levels. SUBJECTIVE: Patient seen and examined by the bedside. She was lying comfortably in bed, well oriented in time and place, and cooperative. OBJECTIVE: Vital Signs Period Temp Pulse Resp BP Sys/Simon Pulse Ox Last 24 Hr 97.6 F-99.4 F 62-71 20-20 122-142/68-85 99 PHYSICAL EXAM GENERAL: The patient is awake, alert, and fully oriented, in no acute distress. HEAD: Normal with no signs of trauma. EYES: PERRL, extraocular movements intact, sclera anicteric ENT: nares patent, moist mucous membranes. NECK: Trachea midline, full range of motion, supple. LUNGS: Breath sounds equal, clear to auscultation bilaterally, no wheezes, no crackles, no accessory muscle use. HEART: Regular rate and rhythm, S1, S2 without murmur, rub or gallop. ABDOMEN: Soft, nondistended, normoactive bowel sounds, slight tenderness in RLQ and LLQ due to injection sites, no guarding, no rebound, no hepatosplenomegaly, no masses. EXTREMITIES: 2+ pulses, warm, well-perfused NEUROLOGICAL: Normal speech, normal gait PSYCH: Normal mood, normal affect. SKIN: Warm, dry, normal turgor, no rashes or lesions noted. LABS Laboratory Results - last 24 hr 08/10/18 08/10/18 07:43 07:43 WBC 4.9 RBC 4.52 Hgb 11.9 Hct 37.0 MCV 81.9 MCH 26.4 MCHC 32.3 RDW 14.5 Plt Count 227 D MPV 8.8 Sodium 138 Potassium 4.5 Chloride 104 Carbon Dioxide 28 Anion Gap 5 L BUN 13.2 Creatinine 1.0 Est GFR (CKD-EPI)AfAm 66.10 Est GFR (CKD-EPI)NonAf 57.03 Random Glucose 106 Calcium 7.4 L Total Bilirubin 0.4 AST 293 H ALT 165 H Alkaline Phosphatase 270 H Total Protein 6.9 Albumin 3.2 L CBC, [facility] 08/10/18 07:43 08/10/18 07:43 HOSPITAL COURSE: Date of Admission:08/04/18 The patient is a 68 year old female with no significant past medical history, admitted due to diearrhea with nausea, UTI, and elevated Troponin levels. Current Medications Acetaminophen (Tylenol -) 650 mg PO Q6H PRN PRN Reason: FEVER Last Admin: 08/08/18 17:33 Dose: 650 mg Acetaminophen (Ofirmev Injection -) 1,000 mg IVPB Q6H PRN PRN Reason: FEVER Aspirin (Asa -) 81 mg PO DAILY [facility]PL[facility] Last Admin: 08/10/18 10:48 Dose: 81 mg Heparin Sodium (Porcine) (Heparin -) 5,000 unit SQ TID REPLACED BY [facility] Last Admin: 08/10/18 06:22 Dose: 5,000 unit Piperacillin Sod/Tazobactam (Sod 3.375 gm/ Dextrose) 50 mls @ 100 mls/hr IVPB Q8H-IV ELIDA; Protocol Last Admin: 08/10/18 10:47 Dose: 100 mls/hr Sodium Chloride (1/2 Normal Saline) 1,000 mls @ 100 mls/hr IV ASDIR REPLACED BY [facility] Stop: 08/10/18 20:44 Metoprolol Succinate (Toprol Xl -) 25 mg PO DAILY [facility] BY [facility] Last Admin: 08/10/18 10:48 Dose: 25 mg Date of Discharge: 08/10/18 The patient is a 68 year old female with no significant past medical history, admitted due to diearrhea with nausea. Upon admission patient was found to have significant pyuria, and elevated Troponin levels. Patient was started on Ceftriaxone 1 gm for 3 days, switched to Azithromycin [id number] for 1 day, and then switched to Zosyn 3.375g in Dextrose, Q8H for [address] Chest showed evidence of L upper lobe pneumonia. Fever spikes ceased once patient was put on Zosyn. Patient was continued on ASA and Tropolol, and Troponin levels plateaued eventually. Tests: Urine, blood, and stool cx were all negative. CT Scan chest: L Upper lobe pneumonia with mild atelectic changes in L lung base and small L pleural effusion. CT Abdomen: Multiple diverticula in splenic flexure, no evidence of acute diverticulitis. Discharge Summary Reason For Visit: URINARY TRACT INFECTION/ELEVATED TROPONIN LEVEL Current Active Problems Demand ischemia (Acute) Diarrhea (Acute) Elevated troponin (Acute) Hyponatremia (Acute) UTI (urinary tract infection) (Acute) Weak (Acute) Condition: Improved - Instructions Diet, Activity, Other Instructions: You were admitted to the hospital because of your fever and diarrhea. While you were here, we tested your stool, blood and urine for bacteria, and also scanned your chest and abdomen (CT scan) to look for the source of your infection. Your scan showed evidence of infection in the lungs, which we treated with a course of antibiotics. You should make the following appointments: 1. You should visit your Primary Care Physician within the next one week. 2. You should also make an appointment with the Medication: 1. 2. Resume ALL your other home medications as prescribed. Please return to the emergency department if you feel any of the following: Nausea, vomiting, diarrhea, chest pain, shortness of breath Disposition: HOME - Discharge Referral Referred to [facility] Med P.C.: No
--- NOTE | 2018-08-10 12:28 | PN ---
Progress Note, Physician History of Present Illness: patient stable no new issues temp creeping up now 99 lfts have gone up - Current Medication List Current Medications: Active Medications Acetaminophen (Tylenol -) 650 mg PO Q6H PRN PRN Reason: FEVER Last Admin: 08/08/18 17:33 Dose: 650 mg Acetaminophen (Ofirmev Injection -) 1,000 mg IVPB Q6H PRN PRN Reason: FEVER Aspirin (Asa -) 81 mg PO DAILY [facility] Last Admin: 08/10/18 10:48 Dose: 81 mg Heparin Sodium (Porcine) (Heparin -) 5,000 unit SQ TID [facility] Last Admin: 08/10/18 06:22 Dose: 5,000 unit Piperacillin Sod/Tazobactam (Sod 3.375 gm/ Dextrose) 50 mls @ 100 mls/hr IVPB Q8H-IV ELIDA; Protocol Last Admin: 08/10/18 10:47 Dose: 100 mls/hr Sodium Chloride (1/2 Normal Saline) 1,000 mls @ 100 mls/hr IV ASDIR [facility] Stop: 08/10/18 20:44 Metoprolol Succinate (Toprol Xl -) 25 mg PO DAILY [facility] Last Admin: 08/10/18 10:48 Dose: 25 mg - Objective Vital Signs: Vital Signs Temperature 98.1 F 08/10/18 06:16 Pulse Rate 65 08/10/18 06:16 Respiratory Rate 20 08/10/18 06:16 Blood Pressure 138/85 08/10/18 06:16 O2 Sat by Pulse Oximetry (%) 99 08/09/18 20:10 Constitutional: Yes: No Distress, Calm Cardiovascular: Yes: Regular Rate and Rhythm Respiratory: Yes: Regular, CTA Bilaterally Gastrointestinal: Yes: Normal Bowel Sounds, Soft Musculoskeletal: Yes: WNL Extremities: Yes: WNL Neurological: Yes: Alert, Oriented Psychiatric: Yes: Alert, Oriented Labs: CBC, BMP 08/10/18 07:43 08/10/18 07:43 INR, PTT INR 1.16 (0.83-1.09) H 08/05/18 06:11 Assessment/Plan 68 y/o lady with no sig PMH who presented with fever and diarrhea 1- Fever: unclear source. U cx negative , but has significant pyuria. cxray with questionable findings. had diarrhea prior to admission 2- Demand ischemia/elevated trop: - pneumonia uti r/o blood parasite plan will hold zosyn for now and watch the lfts please make sure that the blood is collected for smear u/s of the liver close watch rest as per the team
--- NOTE | 2018-08-10 18:38 | PN ---
Teaching Attending Note Name of Resident: Larissa Chang ATTENDING PHYSICIAN STATEMENT I saw and evaluated the patient. I reviewed the resident's note and discussed the case with the resident. I agree with the resident's findings and plan as documented. SUBJECTIVE: Patient is comfrotable with no acute distress. No shortness of breath. OBJECTIVE: Vital Signs Temperature 98.0 F 08/10/18 14:00 Pulse Rate 69 08/10/18 14:00 Respiratory Rate 20 08/10/18 14:00 Blood Pressure 143/81 08/10/18 14:00 O2 Sat by Pulse Oximetry (%) 99 08/10/18 09:00 GENERAL: The patient is awake, alert, and fully oriented, in no acute distress. HEAD: Normal with no signs of trauma. EYES: PERRL, extraocular movements intact, sclera anicteric, conjunctiva clear. ENT: Ears normal, oropharynx clear without exudates, moist mucous membranes. NECK: Trachea midline, full range of motion, supple. LUNGS: Breath sounds equal, clear to auscultation bilaterally, no wheezes, no crackles, no accessory muscle use. HEART: Regular rate and rhythm, S1, S2 without murmur, rub or gallop. ABDOMEN: Soft, NT,ND, normoactive bowel sounds, no guarding, no rebound, no hepatosplenomegaly, no masses. EXTREMITIES: 2+ pulses, warm, well-perfused, no edema. NEUROLOGICAL: Cranial nerves II through XII grossly intact. Normal speech, gait is stable . PSYCH: Normal mood, normal affect. SKIN: Warm, dry, normal turgor, no rashes or lesions noted CBCD WBC 4.9 K/mm3 (4.0-10.0) 08/10/18 07:43 RBC 4.52 M/mm3 (3.60-5.2) 08/10/18 07:43 Hgb 11.9 GM/dL (10.7-15.3) 08/10/18 07:43 Hct 37.0 % (32.4-45.2) 08/10/18 07:43 MCV 81.9 fl (80-96) 08/10/18 07:43 MCHC 32.3 g/dl (32.0-36.0) 08/10/18 07:43 RDW 14.5 % (11.6-15.6) 08/10/18 07:43 Plt Count 227 K/MM3 (134-434) D 08/10/18 07:43 MPV 8.8 fl (7.5-11.1) 08/10/18 07:43 CMP Sodium 138 mmol/L (136-145) 08/10/18 07:43 Potassium 4.5 mmol/L (3.5-5.1) 08/10/18 07:43 Chloride 104 mmol/L (98-107) 08/10/18 07:43 Carbon Dioxide 28 mmol/L (21-32) 08/10/18 07:43 Anion Gap 5 MMOL/L (8-16) L 08/10/18 07:43 BUN 13.2 mg/dL (7-18) 08/10/18 07:43 Creatinine 1.0 mg/dL (0.55-1.3) 08/10/18 07:43 Random Glucose 106 mg/dL (74-106) 08/10/18 07:43 Calcium 7.4 mg/dL (8.5-10.1) L 08/10/18 07:43 Total Bilirubin 0.4 mg/dL (0.2-1) 08/10/18 07:43 AST 293 U/L (15-37) H 08/10/18 07:43 ALT 165 U/L (13-61) H 08/10/18 07:43 Alkaline Phosphatase 270 U/L (45-117) H 08/10/18 07:43 Total Protein 6.9 g/dl (6.4-8.2) 08/10/18 07:43 Albumin 3.2 g/dl (3.4-5.0) L 08/10/18 07:43 CARDIAC ENZYMES Creatine Kinase 336 U/L (26-192) H 08/06/18 06:36 Troponin I 0.09 ng/ml (0.00-0.05) H 08/05/18 06:11 Current Medications Generic Name Dose Route Start Last Admin Trade Name Freq PRN Reason Stop Dose Admin Acetaminophen 650 mg 08/07/18 16:51 08/08/18 17:33 Tylenol - PO 650 mg Q6H PRN Administration FEVER Acetaminophen 1,000 mg 08/08/18 02:05 Ofirmev Injection - IVPB Q6H PRN FEVER Aspirin 81 mg 08/06/18 12:30 08/10/18 10:48 Asa - PO 81 mg DAILY ELIDA Administration Heparin Sodium (Porcine) 5,000 unit 08/04/18 22:00 08/10/18 14:42 Heparin - SQ 5,000 unit TID ELIDA Administration Sodium Chloride 1,000 mls @ 100 mls/hr 08/10/18 10:45 08/10/18 14:42 1/2 Normal Saline IV 08/10/18 20:44 100 mls/hr ASDIR ELIDA Administration Metoprolol Succinate 25 mg 08/06/18 12:30 08/10/18 10:48 Toprol Xl - PO 25 mg DAILY ELIDA Administration Microbiology 08/06/18 07:56 Blood - Peripheral Venous Blood Culture - Preliminary NO GROWTH OBTAINED AFTER 96 HOURS, INCUBATION TO CONTINUE FOR 1 DAYS. 08/06/18 08:24 Blood - Peripheral Venous Blood Culture - Preliminary NO GROWTH OBTAINED AFTER 96 HOURS, INCUBATION TO CONTINUE FOR 1 DAYS. 08/05/18 06:20 Blood - Peripheral Venous Blood Culture - Final NO GROWTH AFTER 5 DAYS INCUBATION 08/05/18 06:11 Blood - Peripheral Venous Blood Culture - Final NO GROWTH AFTER 5 DAYS INCUBATION 08/06/18 15:00 Stool Gram Stain - Final 08/06/18 15:00 Stool Salmonella/Shigella Culture - Final NO GROWTH OF SALMONELLA OR SHIGELLA SPECIES OBTAINED 08/06/18 15:00 Stool Campylobacter Culture - Final NO GROWTH OF CAMPYLOBACTER SPECIES OBTAINED 08/06/18 15:00 Stool Yersinia Culture - Final NO GROWTH OF YERSINIA SPECIES OBTAINED 08/06/18 15:00 Stool Vibrio Culture - Final NO GROWTH OF VIBRIO SPECIES OBTAINED 08/06/18 15:00 Stool Escherichia coli 0157 Culture - Final NO GROWTH OF E COLI 0157 OBTAINED 08/06/18 15:00 Urine - Urine Clean Catch Legionella Antigen - Final 08/06/18 15:00 Urine - Urine Clean Catch Streptococcus pneumoniae Antigen ( M - Final 08/06/18 15:00 Urine - Urine Clean Catch Urine Culture - Final NO GROWTH OBTAINED 08/04/18 14:17 Urine - Urine Clean Catch Urine Culture - Final Normal Urogenital Sandee ASSESSMENT AND PLAN: patient is a 68yo female with PMHx who presented with fever and diarrhea on CT of chest was found to have DULCE Pneumonia. # DULCE Pneumonia s/p IV zosyn and zithromax. blood cx neg to date , no vegetations on Echo. # Acute UTI completed antibiotic zosyn # Demand ischemia/elevated trop: cont ASa and BB # hypophosphatemia: repleted, is 3.0 now # Acute worsening transaminitis. will follow. DVT PX : heparin
[2018-08-11] MEDS: HEPARIN NA (PORCINE) 5,000 UNITS/ML 1ML VIAL SQ SCH ×3 (06:48→22:20)
--- NOTE | 2018-08-11 07:06 | PN ---
Progress Note (short form) - Note Progress Note: Chief Complaint: Events noted, notes reviewed, denies any chest pain or dyspnea History of Present Illness: Seen and examined on telemetry. Events noted, notes reviewed, denies any chest pain or dyspnea Echocardiography dated 08/06/2018 revealed normal LV and RV size and function, LVEF 65-70%, grade I diastolic dysfunction, moderate TR with RVSP 28, mild MR - Current Medication List Current Medications Acetaminophen (Tylenol -) 650 mg PO Q6H PRN PRN Reason: FEVER Last Admin: 08/08/18 17:33 Dose: 650 mg Acetaminophen (Ofirmev Injection -) 1,000 mg IVPB Q6H PRN PRN Reason: FEVER Aspirin (Asa -) 81 mg PO DAILY [facility] Last Admin: 08/10/18 10:48 Dose: 81 mg Heparin Sodium (Porcine) (Heparin -) 5,000 unit SQ TID [facility] Last Admin: 08/11/18 06:48 Dose: Not Given Metoprolol Succinate (Toprol Xl -) 25 mg PO DAILY [facility] Last Admin: 08/10/18 10:48 Dose: 25 mg Review of Systems Cardiovascular: As noted above Respiratory: denies Cough or Sputum Production Gastrointestinal: denies: Nausea, Vomiting, Diarrhea, Constipation or Abdominal Discomfort Musculoskeletal: No Symptoms Reported - Objective Vital Signs: Last Vital Signs Temp Pulse Resp BP Pulse Ox 97.2 F L 74 17 134/84 99 08/11/18 02:00 08/11/18 02:00 08/11/18 02:00 08/11/18 02:00 08/10/18 21:00 Intake & Output 08/08/18 08/09/18 08/10/18 08/11/18 23:59 23:59 23:59 23:59 Intake Total 1220 1140 848 Balance 1220 1140 848 Constitutional: No Distress, Calm Neck: Supple Negative JVD No Bruit Respiratory: Clear to A&P Cardiovascular: S1 S2 Regular Rate Rhythm Gastrointestinal: Soft Benign Normal Bowel Sounds Ext: Negative Edema Labs: CBC, BMP 08/11/18 07:44 08/11/18 06:00 CBC, BMP 08/10/18 07:43 08/10/18 07:43 Hepatic Panel Total Bilirubin 0.4 mg/dL (0.2-1) 08/10/18 07:43 AST 293 U/L (15-37) H 08/10/18 07:43 ALT 165 U/L (13-61) H 08/10/18 07:43 Alkaline Phosphatase 270 U/L (45-117) H 08/10/18 07:43 Albumin 3.2 g/dl (3.4-5.0) L 08/10/18 07:43 INR, PTT INR 1.16 (0.83-1.09) H 08/05/18 06:11 ASSESSMENT: 1. CAD with demand ischemia angina pectoris, clinically stable 2. Diastolic LV dysfunction with clinical class 0 NYHA classification LV failure 3. Pneumonia, resolving 4. UTI, uro-sepsis, resolving PLAN: 1. Continue Toprol XL 2. Continue ASA 3. Add statins 4. Awaiting transfer to floor care from the cardiovascular point of view Ramon Pugh M.D.
[2018-08-11] MEDS: metoPROLOL SUCCINATE 25 MG TAB.SR.24H (FP) PO SCH (09:14)
[2018-08-11] MEDS: ASPIRIN 81 MG CHEWABLE TABLETS PO SCH (09:14)
[2018-08-11 09:16] LABS: HEMATOCRIT 36.5 % (32.4-45.2); HEMOGLOBIN 11.8 GM/dL (10.7-15.3); MCH 26.7 pg (25.7-33.7); MCHC 32.2 g/dl (32.0-36.0); MEAN CELL VOLUME 82.7 fl (80-96); MEAN PLT VOLUME 8.9 fl (7.5-11.1); RBC 4.41 M/mm3 (3.60-5.2); RDW 14.4 % (11.6-15.6); WHITE BLOOD COUNT 6.1 K/mm3 (4.0-10.0)
[2018-08-11 09:39] LABS: PLATELET COUNT 286 K/MM3 (134-434)
[2018-08-11 09:50] LABS: BILIRUBIN,TOTAL 0.4 mg/dL (0.2-1); BLOOD UREA NITROGEN 10.2 mg/dL (7-18); CALCIUM 9.2 mg/dL (8.5-10.1); CREATININE 0.8 mg/dL (0.55-1.3); POTASSIUM 4.2 mmol/L (3.5-5.1); TOT PROT 6.9 g/dl (6.4-8.2)
--- NOTE | 2018-08-11 11:46 | PN ---
Progress Note, Physician History of Present Illness: Pt seen and examined. States she feels better. Denies SOB/cough at this time. Fevers have resolved. No further diarrhea. - Current Medication List Current Medications: Active Medications Acetaminophen (Tylenol -) 650 mg PO Q6H PRN PRN Reason: FEVER Last Admin: 08/08/18 17:33 Dose: 650 mg Acetaminophen (Ofirmev Injection -) 1,000 mg IVPB Q6H PRN PRN Reason: FEVER Aspirin (Asa -) 81 mg PO DAILY [facility] Last Admin: 08/11/18 09:14 Dose: 81 mg Atorvastatin Calcium (Lipitor -) 20 mg PO HS [facility] Heparin Sodium (Porcine) (Heparin -) 5,000 unit SQ TID [facility] Last Admin: 08/11/18 06:48 Dose: Not Given Metoprolol Succinate (Toprol Xl -) 25 mg PO DAILY [facility] Last Admin: 08/11/18 09:14 Dose: 25 mg - Objective Vital Signs: Vital Signs Temperature 97.2 F L 08/11/18 02:00 Pulse Rate 74 08/11/18 02:00 Respiratory Rate 17 08/11/18 02:00 Blood Pressure 134/84 08/11/18 02:00 O2 Sat by Pulse Oximetry (%) 99 08/10/18 21:00 Constitutional: Yes: No Distress, Calm Eyes: Yes: Conjunctiva Clear Cardiovascular: Yes: Regular Rate and Rhythm Respiratory: Yes: CTA Bilaterally Gastrointestinal: Yes: Normal Bowel Sounds, Soft Genitourinary: Yes: WNL Musculoskeletal: Yes: WNL Extremities: Yes: WNL Edema: No Integumentary: Yes: WNL Neurological: Yes: Alert, Oriented Labs: CBC, BMP 08/11/18 07:44 08/11/18 06:00 INR, PTT INR 1.16 (0.83-1.09) H 08/05/18 06:11 Microbiology 08/06/18 07:56 Blood - Peripheral Venous Blood Culture - Final NO GROWTH AFTER 5 DAYS INCUBATION 08/06/18 08:24 Blood - Peripheral Venous Blood Culture - Final NO GROWTH AFTER 5 DAYS INCUBATION 08/05/18 06:20 Blood - Peripheral Venous Blood Culture - Final NO GROWTH AFTER 5 DAYS INCUBATION 08/05/18 06:11 Blood - Peripheral Venous Blood Culture - Final NO GROWTH AFTER 5 DAYS INCUBATION 08/06/18 15:00 Stool Gram Stain - Final 08/06/18 15:00 Stool Salmonella/Shigella Culture - Final NO GROWTH OF SALMONELLA OR SHIGELLA SPECIES OBTAINED 08/06/18 15:00 Stool Campylobacter Culture - Final NO GROWTH OF CAMPYLOBACTER SPECIES OBTAINED 08/06/18 15:00 Stool Yersinia Culture - Final NO GROWTH OF YERSINIA SPECIES OBTAINED 08/06/18 15:00 Stool Vibrio Culture - Final NO GROWTH OF VIBRIO SPECIES OBTAINED 08/06/18 15:00 Stool Escherichia coli 0157 Culture - Final NO GROWTH OF E COLI 0157 OBTAINED 08/06/18 15:00 Urine - Urine Clean Catch Legionella Antigen - Final 08/06/18 15:00 Urine - Urine Clean Catch Streptococcus pneumoniae Antigen ( M - Final 08/06/18 15:00 Urine - Urine Clean Catch Urine Culture - Final NO GROWTH OBTAINED 08/04/18 14:17 Urine - Urine Clean Catch Urine Culture - Final Normal Urogenital Sandee - ....Imaging Chest X-ray: Report Reviewed Problem List - Problems (1) Diarrhea Code(s): R19.7 - DIARRHEA, UNSPECIFIED Qualifiers: Diarrhea type: unspecified type Qualified Code(s): R19.7 - Diarrhea, unspecified (2) UTI (urinary tract infection) Code(s): N39.0 - URINARY TRACT INFECTION, SITE NOT SPECIFIED Qualifiers: Urinary tract infection type: site unspecified Hematuria presence: without hematuria Qualified Code(s): N39.0 - Urinary tract infection, site not specified Assessment/Plan PNA UTI -- fevers/diarrhea resolved, now off of antibiotics -- blood cultures, stool cultures, repeat urine cultures neg, serologies pending , blood smear not sent -- LFTs rising, consider US if continues
--- NOTE | 2018-08-11 16:37 | PN ---
Progress Note (short form) - Note Progress Note: Patient is comfortable with no acute distress. no shortness of breath, no nausea or vomiting. Vital Signs Temperature 98.8 F 08/11/18 14:00 Pulse Rate 79 08/11/18 14:00 Respiratory Rate 18 08/11/18 14:00 Blood Pressure 121/71 08/11/18 14:00 O2 Sat by Pulse Oximetry (%) 99 08/11/18 09:00 GENERAL: The patient is awake, alert, and fully oriented, in no acute distress. HEAD: Normal with no signs of trauma. EYES: PERRL, extraocular movements intact, sclera anicteric, conjunctiva clear. ENT: Ears normal, oropharynx clear without exudates, moist mucous membranes. NECK: Trachea midline, full range of motion, supple. LUNGS: Breath sounds equal, clear to auscultation bilaterally, no wheezes, no crackles, no accessory muscle use. HEART: Regular rate and rhythm, S1, S2 without murmur, rub or gallop. ABDOMEN: Soft, NT,ND, normoactive bowel sounds, no guarding, no rebound, no hepatosplenomegaly, no masses. EXTREMITIES: 2+ pulses, warm, well-perfused, no edema. NEUROLOGICAL: Cranial nerves II through XII grossly intact. Normal speech, gait is stable . PSYCH: Normal mood, normal affect. SKIN: Warm, dry, normal turgor, no rashes or lesions noted CBCD WBC 6.1 K/mm3 (4.0-10.0) 08/11/18 07:44 RBC 4.41 M/mm3 (3.60-5.2) 08/11/18 07:44 Hgb 11.8 GM/dL (10.7-15.3) 08/11/18 07:44 Hct 36.5 % (32.4-45.2) 08/11/18 07:44 MCV 82.7 fl (80-96) 08/11/18 07:44 MCHC 32.2 g/dl (32.0-36.0) 08/11/18 07:44 RDW 14.4 % (11.6-15.6) 08/11/18 07:44 Plt Count 286 K/MM3 (134-434) D 08/11/18 07:44 MPV 8.9 fl (7.5-11.1) 08/11/18 07:44 CMP Sodium 140 mmol/L (136-145) 08/11/18 06:00 Potassium 4.2 mmol/L (3.5-5.1) 08/11/18 06:00 Chloride 104 mmol/L (98-107) 08/11/18 06:00 Carbon Dioxide 27 mmol/L (21-32) 08/11/18 06:00 Anion Gap 8 MMOL/L (8-16) 08/11/18 06:00 BUN 10.2 mg/dL (7-18) 08/11/18 06:00 Creatinine 0.8 mg/dL (0.55-1.3) 08/11/18 06:00 Random Glucose 100 mg/dL (74-106) 08/11/18 06:00 Calcium 9.2 mg/dL (8.5-10.1) 08/11/18 06:00 Total Bilirubin 0.4 mg/dL (0.2-1) 08/11/18 06:00 AST 268 U/L (15-37) H 08/11/18 06:00 ALT 208 U/L (13-61) H 08/11/18 06:00 Alkaline Phosphatase 332 U/L (45-117) H 08/11/18 06:00 Total Protein 6.9 g/dl (6.4-8.2) 08/11/18 06:00 Albumin 3.0 g/dl (3.4-5.0) L 08/11/18 06:00 CARDIAC ENZYMES Creatine Kinase 336 U/L (26-192) H 08/06/18 06:36 Troponin I 0.09 ng/ml (0.00-0.05) H 08/05/18 06:11 Current Medications Generic Name Dose Route Start Last Admin Trade Name Freq PRN Reason Stop Dose Admin Acetaminophen 650 mg 08/07/18 16:51 08/08/18 17:33 Tylenol - PO 650 mg Q6H PRN Administration FEVER Acetaminophen 1,000 mg 08/08/18 02:05 Ofirmev Injection - IVPB Q6H PRN FEVER Aspirin 81 mg 08/06/18 12:30 08/11/18 09:14 Asa - PO 81 mg DAILY [facility] Administration Atorvastatin Calcium 20 mg 08/11/18 22:00 Lipitor - PO HS [facility] Heparin Sodium (Porcine) 5,000 unit 08/04/18 22:00 08/11/18 13:21 Heparin - SQ 5,000 unit TID [facility] Administration Metoprolol Succinate 25 mg 08/06/18 12:30 08/11/18 09:14 Toprol Xl - PO 25 mg DAILY [facility] Administration Microbiology 08/06/18 07:56 Blood - Peripheral Venous Blood Culture - Final NO GROWTH AFTER 5 DAYS INCUBATION 08/06/18 08:24 Blood - Peripheral Venous Blood Culture - Final NO GROWTH AFTER 5 DAYS INCUBATION 08/05/18 06:20 Blood - Peripheral Venous Blood Culture - Final NO GROWTH AFTER 5 DAYS INCUBATION 08/05/18 06:11 Blood - Peripheral Venous Blood Culture - Final NO GROWTH AFTER 5 DAYS INCUBATION 08/06/18 15:00 Stool Gram Stain - Final 08/06/18 15:00 Stool Salmonella/Shigella Culture - Final NO GROWTH OF SALMONELLA OR SHIGELLA SPECIES OBTAINED 08/06/18 15:00 Stool Campylobacter Culture - Final NO GROWTH OF CAMPYLOBACTER SPECIES OBTAINED 08/06/18 15:00 Stool Yersinia Culture - Final NO GROWTH OF YERSINIA SPECIES OBTAINED 08/06/18 15:00 Stool Vibrio Culture - Final NO GROWTH OF VIBRIO SPECIES OBTAINED 08/06/18 15:00 Stool Escherichia coli 0157 Culture - Final NO GROWTH OF E COLI 0157 OBTAINED 08/06/18 15:00 Urine - Urine Clean Catch Legionella Antigen - Final 08/06/18 15:00 Urine - Urine Clean Catch Streptococcus pneumoniae Antigen ( M - Final 08/06/18 15:00 Urine - Urine Clean Catch Urine Culture - Final NO GROWTH OBTAINED 08/04/18 14:17 Urine - Urine Clean Catch Urine Culture - Final Normal Urogenital Sandee ASSESSMENT AND PLAN: patient is a 68yo female with PMHx who presented with fever and diarrhea on CT of chest was found to have DULCE Pneumonia: # DULCE Pneumonia s/p IV zosyn and zithromax. blood cx neg to date , no vegetations on Echo. # Acute UTI completed antibiotic zosyn # Demand ischemia/elevated trop: cont ASa and BB # hypophosphatemia: repleted, is 3.0 now # Acute worsening transaminitis. trending down. DVT PX : heparin held lipitor for elevated LFTs , do not order any Tylenol please. Visit type - Emergency Visit Emergency Visit: Yes ED Registration Date: 08/04/18 Care time: The patient presented to the Emergency Department on the above date and was hospitalized for further evaluation of their emergent condition. - New Patient This patient is new to me today: No - Critical Care Critical Care patient: No - Discharge Referral Referred to [facility] No
[2018-08-11] MEDS ORDERED: ATORVASTATIN CA 20 MG TABLET (FP) PO SCH (22:00)
[2018-08-12] MEDS: HEPARIN NA (PORCINE) 5,000 UNITS/ML 1ML VIAL SQ SCH (05:55)
--- NOTE | 2018-08-12 07:01 | PN ---
Progress Note (short form) - Note Progress Note: Chief Complaint: Events noted, notes reviewed, denies any chest pain or dyspnea History of Present Illness: Seen and examined on telemetry. Events noted, notes reviewed, denies any chest pain or dyspnea Echocardiography dated 08/06/2018 revealed normal LV and RV size and function, LVEF 65-70%, grade I diastolic dysfunction, moderate TR with RVSP 28, mild MR - Current Medication List Current Medications Aspirin (Asa -) 81 mg PO DAILY [facility] Last Admin: 08/11/18 09:14 Dose: 81 mg Atorvastatin Calcium (Lipitor -) 20 mg PO [facility] Heparin Sodium (Porcine) (Heparin -) 5,000 unit SQ TID [facility] Last Admin: 08/12/18 05:55 Dose: Not Given Metoprolol Succinate (Toprol Xl -) 25 mg PO DAILY [facility] Last Admin: 08/11/18 09:14 Dose: 25 mg Review of Systems Cardiovascular: As noted above Respiratory: denies Cough or Sputum Production Gastrointestinal: denies: Nausea, Vomiting, Diarrhea, Constipation or Abdominal Discomfort Musculoskeletal: No Symptoms Reported - Objective Vital Signs: Last Vital Signs Temp Pulse Resp BP Pulse Ox 98.3 F 71 20 126/85 98 08/12/18 05:42 08/12/18 05:42 08/12/18 05:42 08/12/18 05:42 08/11/18 21:00 Intake & Output 08/09/18 08/10/18 08/11/18 08/12/18 23:59 23:59 23:59 23:59 Intake Total 1140 848 840 Balance 1140 848 840 Constitutional: No Distress, Calm Neck: Supple Negative JVD No Bruit Respiratory: Clear to A&P Cardiovascular: S1 S2 Regular Rate Rhythm Gastrointestinal: Soft Benign Normal Bowel Sounds Ext: Negative Edema Labs: CBC, BMP 08/12/18 06:15 08/12/18 06:15 CBC, BMP 08/11/18 07:44 08/11/18 06:00 Hepatic Panel Total Bilirubin 0.4 mg/dL (0.2-1) 08/11/18 06:00 AST 268 U/L (15-37) H 08/11/18 06:00 ALT 208 U/L (13-61) H 08/11/18 06:00 Alkaline Phosphatase 332 U/L (45-117) H 08/11/18 06:00 Albumin 3.0 g/dl (3.4-5.0) L 08/11/18 06:00 INR, PTT INR 1.16 (0.83-1.09) H 08/05/18 06:11 ASSESSMENT: 1. CAD with demand ischemia angina pectoris, clinically stable 2. Diastolic LV dysfunction with clinical class 0 NYHA classification LV failure 3. Pneumonia, resolved 4. UTI, uro-sepsis, resolved PLAN: 1. Continue Toprol XL 2. Continue ASA 3. Continue Lipitor 4. Awaiting transfer to floor care from the cardiovascular point of view, D/C home as per the primary team Ramon Pugh M.D.
[2018-08-12 07:33] LABS: BASO % 0.8 % (0-2.0); EOS % 2.6 % (0-4.5); HEMATOCRIT 37.5 % (32.4-45.2); HEMOGLOBIN 12.1 GM/dL (10.7-15.3); LYMPH % 23.6 % (8-40); MCH 26.7 pg (25.7-33.7); MCHC 32.2 g/dl (32.0-36.0); MEAN PLT VOLUME 8.3 fl (7.5-11.1); MONO % 7.3 % (3.8-10.2); NEUT % 65.7 % (42.8-82.8); PLATELET COUNT 305 K/MM3 (134-434); RBC 4.52 M/mm3 (3.60-5.2); RDW 14.7 % (11.6-15.6); WHITE BLOOD COUNT 6.9 K/mm3 (4.0-10.0)
[2018-08-12 07:48] LABS: ALBUMIN 3.1 g/dl (3.4-5.0); BILIRUBIN,TOTAL 0.5 mg/dL (0.2-1); BLOOD UREA NITROGEN 12.7 mg/dL (7-18); CALCIUM 9.3 mg/dL (8.5-10.1); CREATININE 0.9 mg/dL (0.55-1.3); POTASSIUM 4.6 mmol/L (3.5-5.1)
[2018-08-12] MEDS: ASPIRIN 81 MG CHEWABLE TABLETS PO SCH (10:58)
[2018-08-12] MEDS: metoPROLOL SUCCINATE 25 MG TAB.SR.24H (FP) PO SCH (10:58)
--- NOTE | 2018-08-12 11:17 | DS ---
Physical Exam: SUBJECTIVE: Patient seen this morning and reports she is feeling much better. Patient had no events overnight. OBJECTIVE: Vital Signs Period Temp Pulse Resp BP Sys/Simon Pulse Ox Last 24 Hr 98.3 F-99.0 F 66-79 18-20 121-146/71-92 98 PHYSICAL EXAM GENERAL: The patient is awake, alert, and fully oriented, in no acute distress. HEAD: Normal with no signs of trauma. EYES: PERRL, extraocular movements intact, NECK: Trachea midline, full range of motion, supple. LUNGS: Breath sounds equal, clear to auscultation bilaterally, , no accessory muscle use. HEART: Regular rate and rhythm, S1, S2 without murmur, rub or gallop. ABDOMEN: Soft, nontender, nondistended, normoactive bowel sounds, no guarding, no rebound, no hepatosplenomegaly, no masses. EXTREMITIES: 2+ pulses, warm, well-perfused, no edema. SKIN: Warm, dry, normal turgor, no rashes or lesions noted. LABS Laboratory Results - last 24 hr 08/12/18 08/12/18 06:15 06:15 WBC 6.9 RBC 4.52 Hgb 12.1 Hct 37.5 MCV 83.0 MCH 26.7 MCHC 32.2 RDW 14.7 Plt Count 305 MPV 8.3 Absolute Neuts (auto) 4.6 Neutrophils % 65.7 Lymphocytes % 23.6 D Monocytes % 7.3 Eosinophils % 2.6 D Basophils % 0.8 Nucleated RBC % 0 Sodium 141 Potassium 4.6 Chloride 105 Carbon Dioxide 28 Anion Gap 8 BUN 12.7 Creatinine 0.9 Est GFR (CKD-EPI)AfAm 75.08 Est GFR (CKD-EPI)NonAf 64.78 Random Glucose 117 H Calcium 9.3 Total Bilirubin 0.5 AST 198 H ALT 200 H Alkaline Phosphatase 336 H Total Protein 7.0 Albumin 3.1 L Current Medications Generic Name Dose Route Start Last Admin Trade Name Freq PRN Reason Stop Dose Admin Aspirin 81 mg 08/06/18 12:30 08/12/18 10:58 Asa - PO 81 mg DAILY [facility] Administration Atorvastatin Calcium 20 mg 08/11/18 22:00 Lipitor - PO HS [facility] Heparin Sodium (Porcine) 5,000 unit 08/04/18 22:00 08/12/18 05:55 Heparin - SQ Not Given TID [facility] Metoprolol Succinate 25 mg 08/06/18 12:30 08/12/18 10:58 Toprol Xl - PO 25 mg DAILY [facility] Administration Home Medications Medication Instructions Recorded Aspirin [ASA -] 81 mg PO DAILY tab.chew 08/12/18 Atorvastatin Ca [Lipitor] 20 mg PO HS tablet 08/12/18 Metoprolol Succinate [Toprol XL -] 25 mg PO DAILY tab.sr.24h 08/12/18 HOSPITAL COURSE: Date of Admission:08/04/18 Patient is a 68 y/o female who presented ot the ED with feeling weak. Patient began antibiotics for treatment of a UTI. Patient conitnue to be febril. CT showed Pneumonia in patient and antibiotics were broadened. Patient completed antibiotic treatment for pneumonia and remained afebrile. Patient presented with a tropinemia. Likely 2/2 to sepsis, labs were trended and plateaued. ECHO showed no abnormalitites. While patient was here her LFT's were elevated. This was monitored and they began to trend down, likely 2/2 to abx use. US showed echogenic lesion. Patient instructed to follow up with GI and PCP to continue to monitor. 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 RV normal systolic function Date of Discharge: 08/12/18 Minutes to complete discharge: 35 Discharge Summary Reason For Visit: URINARY TRACT INFECTION/ELEVATED TROPONIN LEVEL Current Active Problems Demand ischemia (Acute) Diarrhea (Acute) Elevated troponin (Acute) Hyponatremia (Acute) UTI (urinary tract infection) (Acute) Weak (Acute) Condition: Improved - Instructions Diet, Activity, Other Instructions: You were admitted to the hospital because of your fever and diarrhea. While you were here, we tested your stool, blood and urine for bacteria, and also scanned your chest and abdomen (CT scan) to look for the source of your infection. Your scan showed evidence of infection in the lungs, which we treated with a course of antibiotics. The infection has now resolved. You should visit your Primary Care Physician within the next one week. At that time please have your liver enzymes (LFT's) checked again. Resume ALL your other home medications as prescribed. Please return to the emergency department if you feel any of the following: Nausea, vomiting, diarrhea, chest pain, shortness of breath or dizziness Referrals: [facility] [place] [Provider Group] - 1 Week Ramon Pugh MD [Staff Physician] - 2 Weeks Disposition: HOME - Home Medications Comprehensive Discharge Medication List: Ambulatory Orders Aspirin [ASA -] 81 mg PO DAILY tab.chew 08/12/18 Atorvastatin Ca [Lipitor] 20 mg PO HS tablet 08/12/18 Metoprolol Succinate [Toprol XL -] 25 mg PO DAILY tab.sr.24h 08/12/18 This patient is new to me today: No Emergency Visit: No Critical Care patient: No - Discharge Referral Referred to [facility] No
[2018-08-12 11:40] LABS: ANISOCYTOSIS 1+; MACROCYTOSIS 0; PLATELET ESTIMATE NORMAL
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
[2018-08-12 14:30] VITALS: BP 144/82; PULSE 79; TEMP 98.5
--- NOTE | 2018-08-12 16:20 | PN ---
Teaching Attending Note Name of Resident: Amadna Gilbert ATTENDING PHYSICIAN STATEMENT I saw and evaluated the patient. I reviewed the resident's note and discussed the case with the resident. I agree with the resident's findings and plan as documented. SUBJECTIVE: Patient is comfortable , would like to go home with follow up with GI as an outpatient. OBJECTIVE: Vital Signs Temperature 98.5 F 08/12/18 10:00 Pulse Rate 79 08/12/18 10:00 Respiratory Rate 18 08/12/18 10:00 Blood Pressure 144/82 08/12/18 10:00 O2 Sat by Pulse Oximetry (%) 96 08/12/18 09:00 GENERAL: The patient is awake, alert, and fully oriented, in no acute distress. HEAD: Normal with no signs of trauma. EYES: PERRL, extraocular movements intact, sclera anicteric, conjunctiva clear. ENT: Ears normal, oropharynx clear without exudates, moist mucous membranes. NECK: Trachea midline, full range of motion, supple. LUNGS: Breath sounds equal, clear to auscultation bilaterally, no wheezes, no crackles, no accessory muscle use. HEART: Regular rate and rhythm, S1, S2 without murmur, rub or gallop. ABDOMEN: Soft, NT,ND, normoactive bowel sounds, no guarding, no rebound, no hepatosplenomegaly, no masses. EXTREMITIES: 2+ pulses, warm, well-perfused, no edema. NEUROLOGICAL: Cranial nerves II through XII grossly intact. Normal speech, gait is stable . PSYCH: Normal mood, normal affect. SKIN: Warm, dry, normal turgor, no rashes or lesions noted CBCD WBC 6.9 K/mm3 (4.0-10.0) 08/12/18 06:15 RBC 4.52 M/mm3 (3.60-5.2) 08/12/18 06:15 Hgb 12.1 GM/dL (10.7-15.3) 08/12/18 06:15 Hct 37.5 % (32.4-45.2) 08/12/18 06:15 MCV 83.0 fl (80-96) 08/12/18 06:15 MCHC 32.2 g/dl (32.0-36.0) 08/12/18 06:15 RDW 14.7 % (11.6-15.6) 08/12/18 06:15 Plt Count 305 K/MM3 (134-434) 08/12/18 06:15 MPV 8.3 fl (7.5-11.1) 08/12/18 06:15 CMP Sodium 141 mmol/L (136-145) 08/12/18 06:15 Potassium 4.6 mmol/L (3.5-5.1) 08/12/18 06:15 Chloride 105 mmol/L (98-107) 08/12/18 06:15 Carbon Dioxide 28 mmol/L (21-32) 08/12/18 06:15 Anion Gap 8 MMOL/L (8-16) 08/12/18 06:15 BUN 12.7 mg/dL (7-18) 08/12/18 06:15 Creatinine 0.9 mg/dL (0.55-1.3) 08/12/18 06:15 Random Glucose 117 mg/dL (74-106) H 08/12/18 06:15 Calcium 9.3 mg/dL (8.5-10.1) 08/12/18 06:15 Total Bilirubin 0.5 mg/dL (0.2-1) 08/12/18 06:15 AST 198 U/L (15-37) H 08/12/18 06:15 ALT 200 U/L (13-61) H 08/12/18 06:15 Alkaline Phosphatase 336 U/L (45-117) H 08/12/18 06:15 Total Protein 7.0 g/dl (6.4-8.2) 08/12/18 06:15 Albumin 3.1 g/dl (3.4-5.0) L 08/12/18 06:15 CARDIAC ENZYMES Creatine Kinase 336 U/L (26-192) H 08/06/18 06:36 Troponin I 0.09 ng/ml (0.00-0.05) H 08/05/18 06:11 Home Medications Medication Instructions Recorded RX: Aspirin [ASA -] 81 mg PO DAILY tab.chew 08/12/18 RX: Atorvastatin Ca [Lipitor] 20 mg PO HS #30 tablet 08/12/18 RX: Metoprolol Succinate [Toprol 25 mg PO DAILY #30 tab.er.24h 08/12/18 Xl] Laboratory Tests 08/04/18 08/07/18 08/08/18 11:27 07:36 06:56 AST 53 H 74 H 90 H ALT 35 52 58 Alkaline Phosphatase 71 90 97 08/09/18 08/10/18 08/11/18 06:10 07:43 06:00 AST 145 H 293 H 268 H ALT 88 H 165 H 208 H Alkaline Phosphatase 161 H 270 H 332 H 08/12/18 06:15 AST 198 H ALT 200 H Alkaline Phosphatase 336 H US of the liver: 1.2cm echogenic lesion the hepatic lobe: cavernous hemangioma that was seen on prior CT of abdomen and plevis 08/07/2018. Partially distended gallbladder limiting its evaluation without intraluminal stones. ASSESSMENT AND PLAN: patient is a 68yo female with PMHx who presented with fever and diarrhea on CT of chest was found to have DULCE Pneumonia: # DULCE Pneumonia s/p IV zosyn and zithromax. blood cx neg to date , no vegetations on Echo. # Acute UTI completed antibiotic zosyn # Demand ischemia/elevated trop: cont ASa and BB # hypophosphatemia: repleted, is 3.0 now # Acute worsening transaminitis. trending down improving. will follow with GI and repeat LFts in a week period with primary . held lipitor for elevated LFTs , do not order any Tylenol please. dc patient home. Follow up with GI, in a week period.
[2018-08-13 19:07] LABS: BABESIA MICROTI ANTIBODY IGG <1:10 (Neg:<1:10); BABESIA MICROTI ANTIBODY IGM <1:10 (Neg:<1:10)
== END 2018-08-12 14:11 | disposition home or self-care (01) | DRG 689 ==
LOC: JER 10:25 → JERBED 16:27 → OBSVTOIN 16:35 → J4W 17:51
PROVIDERS: ADMIT Internal Medicine; ATTEND Internal Medicine
DX: N39.0 Urinary tract infection, site not specified (principal); J18.9 Pneumonia, unspecified organism; E87.1 Hypo-osmolality and hyponatremia; I24.8 Other forms of acute ischemic heart disease; J90 Pleural effusion, not elsewhere classified; R19.7 Diarrhea, unspecified; R31.9 Hematuria, unspecified; E83.39 Other disorders of phosphorus metabolism; R53.1 Weakness; R74.8 Abnormal levels of other serum enzymes; I25.10 Atherosclerotic heart disease of native coronary artery without angina pectoris; R50.9 Fever, unspecified; R91.1 Solitary pulmonary nodule
CPT/HCPCS: 36415; 71045-TC-FY; 71260-TC; 74177-TC; 76705-TC; 80048; 80053; 81003; 82550; 82553; 82930; 83605; 83690; 83735; 84100; 84484; 85025; 85027; 85610; 85730; 86618; 86753; 87040; 87045; 87046; 87086; 87205; 87899; 93005; 93010; 93306-TC; 99285-25; G0378; J0131; J1644; J7030